=== PATIENT | female | born 1960 | race African-American/Black ===

== ENCOUNTER 2019-06-06 18:27 | Emergency (ER) | payer OTHER ==
--- OUTSIDE RECORDS SUMMARY | 2019-06-06 18:30 | XMS REPORT ---
:1960 [facility] Address [address] [place] [address] Care Team Providers Name Role Phone Unavailable Unavailable Unavailable Problems This patient has no known problems. Allergies, Adverse Reactions, Alerts This patient has no known allergies or adverse reactions. Medications This patient has no known medications.
[2019-06-06 20:26] LABS: Urine Blood NEGATIVE (NEG); Urine Glucose NEGATIVE (NEG); Urine Protein NEGATIVE (NEG); Urine Specific Gravity 1.025 (1.005-1.030)
--- NOTE | 2019-06-06 23:15 | ER ---
Nurse's Notes [facility] Name: Naty Garrido Age: 59 yrs Sex: Female : 1960 Arrival Date: 06/06/2019 Time: 18:30 Bed 23 Private MD: Diagnosis: Low back pain;Muscle spasm of back Presentation: 06/06 19:15 Presenting complaint: Patient states: pain started Friday,went to clinic and rv prescribed with Cyclobenzaprine and Methylprednisolone. pain is not getting better. sharp pain on the right lower back, radiates to the front. Transition of care: patient was not received from another setting of care. Onset of symptoms was June 01, 2019 at 08:00. Risk Assessment: Do you want to hurt yourself or someone else? Patient reports no desire to harm self or others. Initial Sepsis Screen: Does the patient meet any 2 criteria? No. Patient's initial sepsis screen is negative. Does the patient have a suspected source of infection? No. Patient's initial sepsis screen is negative. Care prior to arrival: None. 19:15 Method Of Arrival: Ambulatory rv 19:15 Acuity: BARON 4 rv Triage Assessment: 19:19 General: Appears in no apparent distress. Behavior is calm, cooperative. Pain: rv Complains of pain in lower back. Musculoskeletal: Swelling absent. Historical: - Allergies: 19:18 No Known Allergies; rv - PMHx: 19:18 Hypertension; Hypothyroidism; Lupus; rv - PSHx: 19:18 Hysterectomy; rv - Immunization history:: Adult Immunizations up to date. - Coronavirus screen:: The patient has NOT traveled to [place], [place], or [place] in the past 14 days. Proceed with normal triage process as indicated. The patient has NOT had contact with known/suspected case of Coronavirus? Proceed with normal triage procedures. - Social history:: Smoking status: Patient denies any tobacco usage or history of. - Ebola Screening: : No symptoms or risks identified at this time. Screenin:00 Abuse screen: Denies threats or abuse. Denies injuries from another. Nutritional aj1 screening: No deficits noted. Tuberculosis screening: No symptoms or risk factors identified. 23:52 Fall Risk None identified. No fall in past 12 months (0 pts). No secondary diagnosis (0 ch2 pts). No IV (0 pts). Ambulatory Aid- None/Bed Rest/Nurse Assist (0 pts). Gait- Normal/Bed Rest/Wheelchair (0 pts) Mental Status- Oriented to own ability (0 pts). Total Damon Fall Scale indicates No Risk (0-24 pts). Assessment: 20:00 General: Appears in no apparent distress. uncomfortable, Behavior is calm, cooperative, aj1 appropriate for age. Pain: Complains of pain in right low back Pain radiates to abdomen. Neuro: Level of Consciousness is awake, alert, obeys commands, Oriented to person, place, time, situation. Cardiovascular: Patient's skin is warm and dry. Respiratory: Airway is patent Respiratory effort is even, unlabored, Respiratory pattern is regular, symmetrical. GI: No signs and/or symptoms were reported involving the gastrointestinal system. : No signs and/or symptoms were reported regarding the genitourinary system. Reports burning with urination. EENT: No signs and/or symptoms were reported regarding the EENT system. Derm: No signs and/or symptoms reported regarding the dermatologic system. Skin is pink, warm \T\ dry. normal. Musculoskeletal: No signs and/or symptoms reported regarding the musculoskeletal system. Circulation, motion, and sensation intact. 21:00 Reassessment: Patient appears in no apparent distress at this time. No changes from aj1 previously documented assessment. Patient and/or family updated on plan of care and expected duration. Pain level reassessed. Patient is alert, oriented x 3, equal unlabored respirations, skin warm/dry/pink. 21:28 Reassessment: Patient transported to [place] via wheelchair. aj1 23:23 Reassessment: Patient appears in no apparent distress at this time. No changes from ch2 previously documented assessment. Patient and/or family updated on plan of care and expected duration. Pain level reassessed. Patient is alert, oriented x 3, equal unlabored respirations, skin warm/dry/pink. General: Appears in no apparent distress. comfortable, Behavior is calm, cooperative. Pain: Complains of pain in abdomen and back and right low back Pain radiates to abdomen and back and right low back Pain currently is 6 out of 10 on a pain scale. 23:50 Reassessment: Patient and/or family updated on plan of care and expected duration. Pain ch2 level reassessed. Patient is alert, oriented x 3, equal unlabored respirations, skin warm/dry/pink. General: Appears in no apparent distress. comfortable, Behavior is calm, cooperative. Pain: Pain currently is 3 out of 10 on a pain scale. Vital Signs: 19:14 BP 143 / 99; Pulse 74; Resp 17; Temp 98; Pulse Ox 100% ; Weight 158.76 kg; Height 5 ft. rv 9 in. (175.26 cm); Pain 9/10; 21:53 BP 107 / 92 (auto/reg); Pulse 82; Pulse Ox 100% on R/A; jp3 22:45 BP 131 / 87; Pulse 77; Resp 16; Temp 98.4(O); Pulse Ox 98% on R/A; Pain 6/10; ch2 23:15 BP 139 / 84; Pulse 79; Resp 18; Pulse Ox 98% on R/A; Pain 6/10; ch2 23:50 BP 120 / 61; Pulse 73; Resp 18; Temp 98; Pulse Ox 98% on R/A; Pain 4/10; ch2 19:14 Body Mass Index 51.69 (158.76 kg, 175.26 cm) rv 21:53 BP cuff on left Forearm jp3 ED Course: 18:30 Patient arrived in ED. as 19:06 Shawn[facility] Blake [facility]-C [facility] snw 19:06 Eric Bryant MD is Attending Physician. snw 19:17 Triage completed. rv 19:18 Arm band placed on. rv 20:00 Patient has correct armband on for positive identification. Bed in low position. Call aj1 light in reach. Side rails up X 1. 20:00 No provider procedures requiring assistance completed. aj1 20:49 Jo-Ann Polanco, RN is Primary Nurse. aj1 21:56 Warm blanket given. Pillow given. Verbal reassurance given. Pulse ox on. NIBP on. jp3 22:09 CT Stone Protocol In Process Unspecified. EDMS 23:51 Patient did not have IV access during this emergency room visit. ch2 Administered Medications: 23:24 Drug: TORadol 60 mg Route: IM; Site: right gluteus; ch2 Outcome: 23:14 Discharge ordered by . snw 23:51 Discharged to home ambulatory. ch2 23:51 Condition: good 23:51 Discharge instructions given to patient, Instructed on discharge instructions, follow up and referral plans. medication usage, Demonstrated understanding of instructions, follow-up care, medications, Prescriptions given X 2. 23:52 Patient left the ED. ch2 Signatures: Dispatcher [employer] EDJo-Ann Solitario RN RN aj1 Shawna Blake, SATELLITE DISH REPAIRER-C SATELLITE DISH REPAIRER-Csnw Fina Maldonado Candace, RN RN ch2 Camilo Rodriguez RN RN rv [address] jp3
--- NOTE | 2019-06-06 23:15 | EDPHYS ---
Physician Documentation [facility] Name: Naty Garirdo Age: 59 yrs Sex: Female : 1960 Arrival Date: 06/06/2019 Time: 18:30 Bed 23 Private MD: ED Physician Eric Bryant HPI: 06/06 22:01 This 59 yrs old Black Female presents to ER via Ambulatory with complaints of Back Pain.snw 22:01 The patient presents with pain that is acute, with no known mechanism of injury. The snw symptoms are located in the right lower quad through to right low back. Onset: The symptoms/episode began/occurred suddenly, and became worse. The pain does not radiate. Associated signs and symptoms: The patient has no apparent associated signs or symptoms. The problem was sustained from unknown cause. Severity of symptoms: At their worst the symptoms were moderate, severe. The patient has not experienced similar symptoms in the past, but family has similar symptoms. The patient has been recently seen by a physician: the patient's primary care provider, Dr. Alyson Andrews 3 day(s) ago, with similar presenting complaints, ordered CT (pt has not had completed), lab work within normal, no UTI, Rx steroids. Historical: - Allergies: 19:18 No Known Allergies; rv - PMHx: 19:18 Hypertension; Hypothyroidism; Lupus; rv - PSHx: 19:18 Hysterectomy; rv - Immunization history:: Adult Immunizations up to date. - Coronavirus screen:: The patient has NOT traveled to [place], [place], or [place] in the past 14 days. Proceed with normal triage process as indicated. The patient has NOT had contact with known/suspected case of Coronavirus? Proceed with normal triage procedures. - Social history:: Smoking status: Patient denies any tobacco usage or history of. - Ebola Screening: : No symptoms or risks identified at this time. ROS: 21:57 Constitutional: Negative for fever, chills, and weight loss, Eyes: Negative for injury, snw pain, redness, and discharge, ENT: Negative for injury, pain, and discharge, Neck: Negative for injury, pain, and swelling, Cardiovascular: Negative for chest pain, palpitations, and edema, Respiratory: Negative for shortness of breath, cough, wheezing, and pleuritic chest pain, : Negative for injury, bleeding, discharge, and swelling, MS/Extremity: Negative for injury and deformity, Skin: Negative for injury, rash, and discoloration, Neuro: Negative for headache, weakness, numbness, tingling, and seizure, Psych: Negative for depression, anxiety, suicide ideation, homicidal ideation, and hallucinations. 21:57 Abdomen/GI: Positive for abdominal pain, Negative for nausea, vomiting, and diarrhea, vomiting, diarrhea, abdominal cramps, abdominal distension, anorexia. 21:57 Back: Positive for pain through from right lower quad through to right low back, worse with movement. Exam: 21:57 Constitutional: This is a well developed, obese patient who is awake, alert, and in no snw acute distress. Head/Face: Normocephalic, atraumatic. Eyes: Pupils equal round and reactive to light, extra-ocular motions intact. Lids and lashes normal. Conjunctiva and sclera are non-icteric and not injected. Cornea within normal limits. Periorbital areas with no swelling, redness, or edema. ENT: Nares patent. No nasal discharge, no septal abnormalities noted. Tympanic membranes are normal and external auditory canals are clear. Oropharynx with no redness, swelling, or masses, exudates, or evidence of obstruction, uvula midline. Mucous membranes moist. Neck: Trachea midline, no thyromegaly or masses palpated, and no cervical lymphadenopathy. Supple, full range of motion without nuchal rigidity, or vertebral point tenderness. No Meningismus. Chest/axilla: Normal chest wall appearance and motion. Nontender with no deformity. No lesions are appreciated. Cardiovascular: Regular rate and rhythm with a normal S1 and S2. No gallops, murmurs, or rubs. Normal PMI, no JVD. No pulse deficits. Respiratory: Lungs have equal breath sounds bilaterally, clear to auscultation and percussion. No rales, rhonchi or wheezes noted. No increased work of breathing, no retractions or nasal flaring. Back: No spinal tenderness. No costovertebral tenderness. Full range of motion. Skin: Warm, dry with normal turgor. Normal color with no rashes, no lesions, and no evidence of cellulitis. MS/ Extremity: Pulses equal, no cyanosis. Neurovascular intact. Full, normal range of motion. Neuro: Awake and alert, GCS 15, oriented to person, place, time, and situation. Cranial nerves II-XII grossly intact. Motor strength 5/5 in all extremities. Sensory grossly intact. Cerebellar exam normal. Normal gait. Psych: Awake, alert, with orientation to person, place and time. Behavior, mood, and affect are within normal limits. 21:57 Abdomen/GI: Inspection: obese Bowel sounds: normal, Palpation: abdomen is soft and non-tender, in all quadrants. Vital Signs: 19:14 BP 143 / 99; Pulse 74; Resp 17; Temp 98; Pulse Ox 100% ; Weight 158.76 kg; Height 5 ft. rv 9 in. (175.26 cm); Pain 9/10; 21:53 BP 107 / 92 (auto/reg); Pulse 82; Pulse Ox 100% on R/A; jp3 22:45 BP 131 / 87; Pulse 77; Resp 16; Temp 98.4(O); Pulse Ox 98% on R/A; Pain 6/10; ch2 23:15 BP 139 / 84; Pulse 79; Resp 18; Pulse Ox 98% on R/A; Pain 6/10; ch2 23:50 BP 120 / 61; Pulse 73; Resp 18; Temp 98; Pulse Ox 98% on R/A; Pain 4/10; ch2 19:14 Body Mass Index 51.69 (158.76 kg, 175.26 cm) rv 21:53 BP cuff on left Forearm jp3 MDM: 19:57 Patient medically screened. snw 23:09 Data reviewed: vital signs, nurses notes. Data interpreted: Pulse oximetry: on room air snw is 100 %. Interpretation: normal. Counseling: I had a detailed discussion with the patient and/or guardian regarding: the historical points, exam findings, and any diagnostic results supporting the discharge/admit diagnosis, the presence of at least one elevated blood pressure reading (>120/80) during this emergency department visit, lab results, radiology results, the need for outpatient follow up, to return to the emergency department if symptoms worsen or persist or if there are any questions or concerns that arise at home. Special discussion: Based on the patient's Hx, exam, and Dx evaluation, there is no indication for emergent surgery or inpatient Tx. It is understood by the patient/guardian that if the Sx's persist or worsen they need to return immediately for re-evaluation. Based on the history and exam findings, there is no indication for further emergent testing or inpatient evaluation. I discussed with the patient/guardian the need to see the primary care provider for further evaluation of the symptoms. 06/06 20:06 Order name: Urine Dipstick--Ancillary (enter results); Complete Time: :27 em1 06/06 20:55 Order name: CT Stone Protocol snw Administered Medications: 23:24 Drug: TORadol 60 mg Route: IM; Site: right gluteus; ch2 Disposition: 06/07 02:45 Co-signature as Attending Physician, Eric Bryant MD. rn Disposition: 06/06/19 23:14 Discharged to Home. Impression: Low back pain, Muscle spasm of back. - Condition is Stable. - Discharge Instructions: Back Pain, Adult, Musculoskeletal Pain, Cryotherapy, Heat Therapy. - Prescriptions for Diclofenac Sodium 75 mg Oral Tablet Sustained Release - take 1 tablet by ORAL route 2 times per day; 30 tablet. orphenadrine citrate 100 mg Oral Tablet Sustained Release - take 1 tablet by ORAL route 2 times per day As needed; 20 tablet. - Work release form, Medication Reconciliation Form, Thank You Letter, Antibiotic Education, Prescription Opioid Use form. - Follow up: Emergency Department; When: As needed; Reason: Worsening of condition. Follow up: Private Physician; When: 2 - 3 days; Reason: Recheck today's complaints, Continuance of care, Re-evaluation by your physician. Signatures: Dispatcher [employer] EDMS Shawna Blake, DAY CAMP UNIT LEADER-C DAY CAMP UNIT LEADER-Csnw Eric Bryant MD MD rn Hanna, Candace, RN RN ch2 Camilo Rodriguez RN RN rv Corrections: (The following items were deleted from the chart) 06/06 23:52 23:14 06/06/2019 23:14 Discharged to Home. Impression: Low back pain; Muscle spasm of ch2 back. Condition is Stable. Forms are Medication Reconciliation Form, Thank You Letter, Antibiotic Education, Prescription Opioid Use. Follow up: Emergency Department; When: As needed; Reason: Worsening of condition. Follow up: Private Physician; When: 2 - 3 days; Reason: Recheck today's complaints, Continuance of care, Re-evaluation by your physician. snw
[2019-06-06] MEDS ORDERED: KETOROLAC 30 MG/ML INJ ONE (23:21)
[2019-06-07 00:31] VITALS: O2SAT 98
[2019-06-07 00:34] VITALS: BP 120/61; TEMP 98
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
== END 2019-06-06 23:52 | disposition home or self-care (01) ==
LOC: ER 18:27
DX: M62.830 Muscle spasm of back (principal)
CPT/HCPCS: 74176; 76377; 81003; 96372; 99284

== ENCOUNTER 2019-11-02 13:56 | Emergency (ER) | payer OTHER ==
[2019-11-02] MEDS ORDERED: ONDANSETRON 4 MG (ODT) TAB ONE (15:23)
[2019-11-02] MEDS ORDERED: HYDROCODONE/APAP 10/325 TAB ONE (15:23)
--- OUTSIDE RECORDS SUMMARY | 2019-11-02 16:17 | XMS REPORT | Continuity of Care Document ---
:1960 Author Organization [facility] t Address [address] [place] [address] Care Team Providers Name Role Phone Kelly Escobar Main Attending Clinician Unavailable Terri GUTIERREZ, A Attending Clinician Problems This patient has no known problems. Allergies, Adverse Reactions, Alerts This patient has no known allergies or adverse reactions. Medications This patient has no known medications. Procedures This patient has no known procedures. Encounters Start End Encounter Admission Attending Care Care Encounter Source Date/Time Date/Time Type Type Clinicians Facility Department ID 2019-10-06 2019-10-06 Heat Treat Inspector Kimberley Escobar [facility] [id number] 12:32:20 12:47:20 Visit Lab Main Ned [id number] [place] [id number] Professio [phone] [address] 2019-06-01 2019-06-01 Office LACEY Murray [id number] 07:01:19 07:56:19 Visit Laina A Ned [id number] [place] [id number] Professio [phone] [facility] [address] [facility] Results This patient has no known results.
--- OUTSIDE RECORDS SUMMARY | 2019-11-02 16:17 | XMS REPORT | Summary of Care ---
:1960 Author Organization [facility] - [facility] Address [address] [place] [id number] Care Team Providers Name Role Phone Gilberto Murray MD Primary Care Provider Reason for Visit Reason Comments Refill Request Encounter Details Date Type Department Care Team Description 08/16/2019 Telephone [facility] Pediatric and Stephy Murray, Refill Request Adult Primary Care- MD Marino [address] [place] [address], [address] [place] [address] [place] [address] [phone] Allergies Active Allergy Reactions Severity Noted Date Comments Codeine Other - See comments 05/29/2012 Drugged up feeling documented as of this encounter (statuses as of 08/16/2019) Medications Medication Sig Dispensed Refills Start End Date Status Date albuterol (PROVENTIL) 2 Active 2.5 mg /3 mL (0.083 %) 5 nebulizer solution albuterol (PROVENTIL Inhale 2 Puffs 8.5 g 3 Active HFA) 90 mcg/actuation every 4 (four) 7 inhaler hours as needed for Wheezing or Shortness of Breath. losartan 100 mg Take 1 tablet by 90 tablet 0 Active tabletIndications: mouth daily. 8 Essential hypertension, benign albuterol 2.5 mg /3 mL Inhale 3 mL every 1 Box 3 Active (0.083 %) nebulizer 4 (four) hours. 8 solution May also nebulize one extra every 6 hours. montelukast 10 mg tablet Take 1 tablet by 90 tablet 3 04/21/20 1 Active mouth daily. Take 8 one tablet by mouth q. at bedtime VALACYCLOVIR 1 gram TAKE 1 TABLET BY 60 tablet 0 Active tabletIndications: Fever MOUTH TWICE DAILY 9 blister FOR 5 DAYS, THEN TAKE 1 TABLET BY MOUTH EVERY DAY cyanocobalamin 1,000 1 mL by 12 mL 3 Active mcg/mL Intramuscular 9 injectionIndications: route weekly. B12 deficiency ergocalciferol, vitamin Take 1 capsule by 12 capsule 3 01 Active d2, (VITAMIN D2) 50,000 mouth weekly. 9 unit capsuleIndications: Thin nails, Osteopenia, unspecified location hydroCHLOROthiazide 12.5 Take 2 tablets by 180 tablet 3 Active mg tabletIndications: mouth every 9 Essential hypertension, morning. benign hydroxychloroquine 200 Take 1 tablet by 180 tablet 1 Active mg tabletIndications: mouth 2 (two) 9 Systemic lupus times daily. erythematosus, unspecified SLE type, unspecified organ involvement status TRIAMCINOLONE ACETONIDE APPLY TO AFFECTED 80 g 1 02/12/20 1 Active 0.1 % creamIndications: AREA TOPICALLY 2 9 Rash, Eczema, (TWO) TIMES unspecified type DAILY. levothyroxine 137 mcg TAKE 1 TABLET BY 90 tablet 1 Active tabletIndications: MOUTH EVERY 9 Hypothyroidism, MORNING unspecified type fexofenadine 180 mg Take 180 mg by 0 Active tablet mouth daily. AZELASTINE 0.05 % PLACE 1 DROP IN 6 mL 11 Active ophthalmic BOTH EYES 2 (TWO) 9 solutionIndications: TIMES DAILY. Other chronic allergic conjunctivitis of both eyes pregabalin (LYRICA) 50 TAKE 1 CAPSULE BY 180 capsule 1 02 Active mg capsuleIndications: MOUTH TWICE A DAY 0 Neuropathy alendronate 70 mg One tablet once a 12 tablet 3 Active tabletIndications: week 0 Osteoporosis mometasone (NASONEX) 50 2 sprays in each 1 Bottle 11 Active mcg/actuation nasal nostril once a 0 sprayIndications: day Seasonal allergies B Complex Vitamins Take 1 tablet by 90 tablet 3 Active (B-COMPLEX) mouth daily. 0 tabletIndications: Nail problem Hospital, Clinic, or Other Ordered Dose Route Frequency Start Date End Date Status Facility Administered Medication cyanocobalamin (VITAMIN B12) 1000 mcg IM QWEEKLY 11/20/2018 Active injection 1,000 mcg documented as of this encounter (statuses as of 08/16/2019) Active Problems Problem Noted Date Other chronic allergic conjunctivitis of both eyes Vitamin D insufficiency 01/17/2017 Leukopenia, unspecified type 10/25/2016 Long-term use of Plaquenil 10/25/2016 Shingles outbreak 08/18/2015 SLE (systemic lupus erythematosus) 08/18/2015 Vitamin D deficiency 08/18/2015 Hyperproteinemia 08/18/2015 Anti-AUTOMOBILE RADIO REPAIRER antibodies present 07/14/2015 ocean transportation intermediary use of bisphosphonates 07/14/2015 Normocytic anemia 06/30/2014 Peripheral neuropathy 03/12/2013 MCTD (mixed connective tissue disease) 01/07/2013 Osteopenia 05/29/2012 Encounter for long-term (current) use of steroids 05/2011 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 GERD (gastroesophageal reflux disease) 11/16/2010 Encounter for long-term (current) use of other medicat ions 11/16/2010 Systemic lupus erythematosus 08/16/2010 Inflammatory polyarthropathy 10/27/2007 Overview: ICD10 Diagnosis Term Wire Basket Maker Utility Essential hypertension, benign documented as of this encounter (statuses as of 08/16/2019) Resolved Problems Problem Noted Date Resolved Date Muscle weakness 06/30/2014 11/18/2015 Numbness of hand 01/11/2013 11/18/2015 History of pneumonia 08/27/2012 11/18/2015 Acute upper respiratory infection 08/27/20122015 Overview: ICD10 Diagnosis Term Wire Basket Maker Utility Chronic anemia 06/20/2011 11/18/2015 Other voice and resonance disorders 09/14/20090 01/2016 documented as of this encounter (statuses as of 08/16/2019) Immunizations Name Administration Dates Next Due DTAP 06/23/2009 Influenza Virus Vaccine 02/27/2012, 02/28/2009 Influenza Virus Vaccine Quad .5 mL IM 6+ MO 02/16/2019, 100 07/2017 Influenza Virus Vaccine Quad IM 3+ YRS 02/19/2017 Meningococcal B, OMV 06/01/2019 Pneumococcal 13 Conjugate, PCV13 (Prevnar 13) 02/22/2019 Pneumococcal Polysaccharide, PPSV23 (PNEUMOVAX) 02/28/2009 Tdap 02/22/2019 documented as of this encounter Social History Tobacco Use Types Packs/Day Years Used Date Never Smoker Smokeless Tobacco: Never Used Alcohol Use Drinks/Week oz/Week Comments No Sex Assigned at Date Recorded Not on file Job Start Date Occupation Industry Not on file Not on file Not on file Travel History Travel Start Travel End No recent travel history available. documented as of this encounter Last Filed Vital Signs Not on filedocumented in this encounter Plan of Treatment Date Type Specialty Care Team Description 08/16/2019 Telemedicine Visit Internal Medicine Jarett Murray MD [address] [address] 12/03/2019 Office Visit Internal Medicine Laina Murray MD [address] [address] Health Maintenance Due Date Last Done Comments MENINGOCOCCAL B VACCINES (2 06/29/2019 06/01/2019 of 2 - Risk Bexsero 2-dose series) Breast Cancer Screening 08/01/2019 07/31/2018, 10/25/2016, (MAMMOGRAM) 07/26/2015, Additional history exists Zoster Recombinant Vaccine 06/01/2020 Postp oned from ([facility]X) (1 of 2) 2011 ( Insurance / Financial) PNEUMOCOCCAL 0-64 YEARS 07/21/2023 02/22/2019, 02/28/2009 P ostponed from COMBINED SERIES (3 of 3 - 2018 PPSV23) (Alternative Guidelines) COLONOSCOPY 01/20/2024 01/19/2014 (Previously completed) DTaP,Tdap,and Td Vaccines 02/22/2029 02/22/2019, 06/23/2009 (3 - Td) PAP SMEAR Discontinued 08/16/2010, 11/25/2007 HEPATITIS C (HCV) SCREEN Completed 06/14/2015, 10/27/2007 INFLUENZA VACCINE Completed 02/16/2019, 02/11/2018, 02/19/2017, Additional history exists documented as of this encounter Results Not on filedocumented in this encounter Insurance Payer Benefit Plan / Subscriber ID Effective Dates Phone Addre ss Type Group [facility] xxxxxxxxx 2011-Present Medicaid COMM PLAN - PLUS MANAGED MEDICAID documented as of this encounter Advance Directives Type Date Recorded Patient Manager Of Corporate Explanati on Advance Directives and Living Will Power of Can Feeder
--- OUTSIDE RECORDS SUMMARY | 2019-11-02 16:18 | XMS REPORT | Summary of Care ---
:1960 Author Organization [facility] - [facility] Address [address] [place] [address] Care Team Providers Name Role Phone Gilberto Murray MD Primary Care Provider Reason for Visit Reason Comments Refill Request Encounter Details Date Type Department Care Team Description 08/16/2019 Telephone [facility] Internal Enriqueta Hughes , Refill Request Medicine Rheumatology-[facility] on [address] [facility] Primary Care [facility] [address] , [place] [address] [address] [place] [address] [phone] Allergies Active Allergy Reactions Severity Noted Date Comments Codeine Other - See comments 05/29/2012 Drugged up feeling documented as of this encounter (statuses as of 08/17/2019) Medications Medication Sig Dispensed Refills Start End [...] 50 2 sprays in each 1 Bottle Active mcg/actuation nasal nostril once a 0 [...] as of this encounter (statuses as of 08/17/2019) Active Problems Problem Noted Date Other chronic allergic conjunctivitis of both eyes Vitamin D insufficiency 01/17/2017 Leukopenia, unspecified type 10/25/2016 Long-term use of Plaquenil 10/25/2016 Shingles outbreak 08/18/2015 SLE (systemic lupus erythematosus) 08/18/2015 Vitamin D deficiency 08/18/2015 Hyperproteinemia 08/18/2015 Anti-USED CAR SALES MANAGER antibodies present 07/14/2015 long term care social worker use of bisphosphonates 07/14/2015 Normocytic anemia 06/30/2014 Peripheral neuropathy 03/12/2013 MCTD (mixed connective tissue disease) 01/07/2013 Osteopenia 05/29/2012 Encounter for long-term (current) use of steroids 05/2011 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 GERD (gastroesophageal reflux disease) 11/16/2010 Encounter for long-term (current) use of other medicat ions 11/16/2010 Systemic lupus erythematosus 08/16/2010 Inflammatory polyarthropathy 10/27/2007 Overview: ICD10 Diagnosis Term Com Writer Utility Essential hypertension, benign documented as of this encounter (statuses as of 08/17/2019) Resolved Problems Problem Noted Date Resolved Date Muscle weakness 06/30/2014 11/18/2015 Numbness of hand 01/11/2013 11/18/2015 History of pneumonia 08/27/2012 11/18/2015 Acute upper respiratory infection 08/27/20122015 Overview: ICD10 Diagnosis Term Com Writer Utility Chronic anemia 06/20/2011 11/18/2015 Other voice and resonance disorders 09/14/200901/2016 documented as of this encounter (statuses as of 08/17/2019) Immunizations Name Administration Dates Next Due DTAP [...] Treatment Date Type Specialty Care Team Description 12/03/2019 Office Visit Internal Medicine Paula Murray MD [address] [place] [address] [phone] Health Maintenance Due Date Last Done Comments [...] Effective Dates Phone Addre ss Type Group [facility] xxxxxxxxx 2011-Present Medicaid COMM PLAN - PLUS MANAGED MEDICAID documented as of this encounter Advance Directives Type Date Recorded Patient Manager Change Explanati on Advance Directives and Living Will Power of Metal Base Blocker
--- OUTSIDE RECORDS SUMMARY | 2019-11-02 16:19 | XMS REPORT | Summary of Care ---
:1960 Author Organization [facility] - [facility] Address [address] [place] [address] Care Team Providers Name Role Phone Gilberto Murray MD Primary Care Provider Reason for Visit Reason Comments Refill Request Encounter Details Date Type Department Care Team Description 08/16/2019 Refill [facility] Internal Joss Hughes MD Refill Request Medicine [address] [facility] on [address] Primary Care [place], [place] [address] [place], [place] [address]yazmin Martinez, [address] [place] [address] Allergies Active Allergy Reactions Severity Noted Date Comments Codeine Other - See comments 05/29/2012 Drugged up feeling documented as of this encounter (statuses as of 08/20/2019) Medications Medication Sig Dispensed Refills Start End Status Date Date albuterol (PROVENTIL) 2 Active 2.5 mg /3 mL (0.083 %) 015 nebulizer solution albuterol (PROVENTIL Inhale 2 Puffs 8.5 g 3 Active HFA) 90 mcg/actuation every 4 (four) 017 inhaler hours as needed for Wheezing or Shortness of Breath. losartan 100 mg Take 1 tablet by 90 tablet 0 Active tabletIndications: mouth daily. 018 Essential hypertension, benign albuterol 2.5 mg /3 mL Inhale 3 mL 1 Box 3 Active (0.083 %) nebulizer every 4 (four) 018 solution hours. May also nebulize one extra every 6 hours. montelukast 10 mg Take 1 tablet by 90 tablet 3 Active tablet mouth daily. 018 Take one tablet by mouth q. at bedtime VALACYCLOVIR 1 gram TAKE 1 TABLET BY 60 tablet 0 Active tabletIndications: MOUTH TWICE 019 Fever blister DAILY FOR 5 DAYS, THEN TAKE 1 TABLET BY MOUTH EVERY DAY cyanocobalamin 1,000 1 mL by 12 mL 3 Active mcg/mL Intramuscular 019 injectionIndications: route weekly. B12 deficiency ergocalciferol, Take 1 capsule 12 capsule 3 Active vitamin d2, (VITAMIN by mouth weekly. 019 D2) 50,000 unit capsuleIndications: Thin nails, Osteopenia, unspecified location hydroCHLOROthiazide Take 2 tablets 180 tablet 3 Active 12.5 mg by mouth every 019 tabletIndications: morning. Essential hypertension, benign TRIAMCINOLONE APPLY TO 80 g 1 Active ACETONIDE 0.1 % AFFECTED AREA 019 creamIndications: TOPICALLY 2 Rash, Eczema, (TWO) TIMES unspecified type DAILY. levothyroxine 137 mcg TAKE 1 TABLET BY 90 tablet 1 Active tabletIndications: MOUTH EVERY 019 Hypothyroidism, MORNING unspecified type fexofenadine 180 mg Take 180 mg by 0 Active tablet mouth daily. AZELASTINE 0.05 % PLACE 1 DROP IN 6 mL 11 Active ophthalmic BOTH EYES 2 019 solutionIndications: (TWO) TIMES Other chronic allergic DAILY. conjunctivitis of both eyes pregabalin (LYRICA) 50 TAKE 1 CAPSULE 180 capsule 1 Active mg capsuleIndications: BY MOUTH TWICE A 020 Neuropathy DAY alendronate 70 mg One tablet once 12 tablet 3 Active tabletIndications: a week 020 Osteoporosis mometasone (NASONEX) 2 sprays in each 1 Bottle 11 Active 50 mcg/actuation nasal nostril once a 020 sprayIndications: day Seasonal allergies B Complex Vitamins Take 1 tablet by 90 tablet 3 Active (B-COMPLEX) mouth daily. 020 tabletIndications: Nail problem hydroxychloroquine 200 Take 1 tablet by 180 tablet 0 Active mg tabletIndications: mouth 2 (two) 020 Systemic lupus times daily. Dx: erythematosus, M32.9 unspecified SLE type, unspecified organ involvement status hydroxychloroquine 200 Take 1 tablet by 180 tablet 1 08/16/ Discontinued mg tabletIndications: mouth 2 (two) 019 2020 (Reorder) Systemic lupus times daily. erythematosus, unspecified SLE type, unspecified organ involvement status Hospital, Clinic, or Other Ordered Dose Route Frequency Start Date End Date Status Facility Administered Medication cyanocobalamin (VITAMIN B12) 1000 mcg IM QWEEKLY 11/20/2018 Active injection 1,000 mcg documented as of this encounter (statuses as of 08/20/2019) Active Problems Problem Noted Date Other chronic allergic conjunctivitis of both eyes Vitamin D insufficiency 01/17/2017 Leukopenia, unspecified type 10/25/2016 Long-term use of Plaquenil 10/25/2016 Shingles outbreak 08/18/2015 SLE (systemic lupus erythematosus) 08/18/2015 Vitamin D deficiency 08/18/2015 Hyperproteinemia 08/18/2015 Anti-LIBRARY SALES CONSULTANT antibodies present 07/14/2015 terminal carman use of bisphosphonates 07/14/2015 Normocytic anemia 06/30/2014 Peripheral neuropathy 03/12/2013 MCTD (mixed connective tissue disease) 01/07/2013 Osteopenia 05/29/2012 Encounter for long-term (current) use of steroids 05/2011 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 GERD (gastroesophageal reflux disease) 11/16/2010 Encounter for long-term (current) use of other medicat ions 11/16/2010 Systemic lupus erythematosus 08/16/2010 Inflammatory polyarthropathy 10/27/2007 Overview: ICD10 Diagnosis Term Web Press Operator Assistant Utility Essential hypertension, benign documented as of this encounter (statuses as of 08/20/2019) Resolved Problems Problem Noted Date Resolved Date Muscle weakness 06/30/2014 11/18/2015 Numbness of hand 01/11/2013 11/18/2015 History of pneumonia 08/27/2012 11/18/2015 Acute upper respiratory infection 08/27/20122015 Overview: ICD10 Diagnosis Term Web Press Operator Assistant Utility Chronic anemia 06/20/2011 11/18/2015 Other voice and resonance disorders 09/14/2009 07/0 01/2016 documented as of this encounter (statuses as of 08/20/2019) Immunizations Name Administration Dates Next Due DTAP 06/23/2009 Influenza Virus Vaccine 02/27/2012, 02/28/2009 Influenza Virus Vaccine Quad .5 mL IM 6+ MO 02/16/2019, 10/07/2017 Influenza Virus Vaccine Quad IM 3+ YRS [...] Office Visit Internal Medicine Paula Murray MD [address] [place] [address] [phone] Health Maintenance Due Date Last Done Comments [...] Results Not on filedocumented in this encounter Visit Diagnoses Diagnosis Systemic lupus erythematosus, unspecifie d SLE type, unspecified organ involvement status documented in this encounter Insurance Payer Benefit Plan / Subscriber ID Effective Dates Phone Addre ss Type Group [facility] xxxxxxxxx 2011-Present Medicaid COMM PLAN - PLUS MANAGED MEDICAID documented as of this encounter Advance Directives Type Date Recorded Patient Income Tax Consultant Explanati on Advance Directives and Living Will Power of Tourist Information Officer
--- OUTSIDE RECORDS SUMMARY | 2019-11-02 16:19 | XMS REPORT | Summary of Care ---
:1960 Author Organization [facility] - [facility] Address [address] [place] [address] Care Team Providers Name Role Phone Gilberto Murray MD Primary Care Provider Reason for Visit Reason Comments Refill Request Encounter Details Date Type Department Care Team Description 08/16/2019 Telephone [facility] Internal Enriqueta Hughes , Refill Request Medicine Rheumatology-[facility] on [address] [facility] Primary Care [facility] [address] , [place] [address] [address] [place] [address] [phone] Allergies Active Allergy Reactions Severity Noted Date [...] 08/18/2015 Vitamin D deficiency 08/18/2015 Hyperproteinemia 08/18/2015 Anti-PICKUP DRIVER antibodies present 07/14/2015 extermination supervisor use of bisphosphonates 07/14/2015 Normocytic anemia 06/30/2014 Peripheral neuropathy 03/12/2013 MCTD (mixed connective tissue disease) 01/07/2013 Osteopenia 05/29/2012 Encounter for long-term (current) use of steroids 05/2011 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 GERD (gastroesophageal reflux disease) 11/16/2010 Encounter for long-term (current) use of other medicat ions 11/16/2010 Systemic lupus erythematosus 08/16/2010 Inflammatory polyarthropathy 10/27/2007 Overview: ICD10 Diagnosis Term Capacity Analyst Utility Essential hypertension, benign documented as of this encounter (statuses as of 08/17/2019) Resolved Problems Problem Noted Date Resolved Date Muscle weakness 06/30/2014 11/18/2015 Numbness of hand 01/11/2013 11/18/2015 History of pneumonia 08/27/2012 11/18/2015 Acute upper respiratory infection 08/27/20122015 Overview: ICD10 Diagnosis Term Capacity Analyst Utility Chronic anemia 06/20/2011 11/18/2015 Other voice and resonance disorders 09/14/2009 07/0 01/2016 documented as of this encounter (statuses as of 08/17/2019) Immunizations Name Administration Dates Next Due DTAP 06/23/2009 Influenza Virus Vaccine 02/27/2012, 02/28/2009 Influenza Virus Vaccine Quad .5 mL IM 6+ MO 02/16/2019, 1007/2017 Influenza Virus Vaccine Quad IM 3+ YRS [...] Office Visit Internal Medicine Paula Murray MD [address] [place] [address] [phone] Health Maintenance Due Date Last Done Comments [...] Effective Dates Phone Addre ss Type Group [facility] xxxxxxxxx 2011-Present Medicaid COMM PLAN - PLUS MANAGED MEDICAID documented as of this encounter Advance Directives Type Date Recorded Patient Field Training Agent Explanati on Advance Directives and Living Will Power of Medical Office Clerk
--- OUTSIDE RECORDS SUMMARY | 2019-11-02 16:19 | XMS REPORT | Summary of Care ---
:1960 Author Organization [facility] - [facility] Address [address] [place] [address] Care Team Providers Name Role Phone Gilberto Murray MD Primary Care Provider Reason for Visit Reason Comments Refill Request Encounter Details Date Type Department Care Team Description 08/16/2019 Refill [facility] Internal Joss Hughes MD Refill Request Medicine [address] [facility] on [address] Primary Care [place], [place] [address] [place], [place] [address]yazmin Martinez, [address] [place] [address] Allergies Active Allergy Reactions [...] 08/18/2015 Vitamin D deficiency 08/18/2015 Hyperproteinemia 08/18/2015 Anti-SHAPER MACHINE HAND antibodies present 07/14/2015 termite treater use of bisphosphonates 07/14/2015 Normocytic anemia 06/30/2014 Peripheral neuropathy 03/12/2013 MCTD (mixed connective tissue disease) 01/07/2013 Osteopenia 05/29/2012 Encounter for long-term (current) use of steroids 05/2011 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 GERD (gastroesophageal reflux disease) 11/16/2010 Encounter for long-term (current) use of other medicat ions 11/16/2010 Systemic lupus erythematosus 08/16/2010 Inflammatory polyarthropathy 10/27/2007 Overview: ICD10 Diagnosis Term Cutter Operator Utility Essential hypertension, benign documented as of this encounter (statuses as of 08/20/2019) Resolved Problems Problem Noted Date Resolved Date Muscle weakness 06/30/2014 11/18/2015 Numbness of hand 01/11/2013 11/18/2015 History of pneumonia 08/27/2012 11/18/2015 Acute upper respiratory infection 08/27/20122015 Overview: ICD10 Diagnosis Term Cutter Operator Utility Chronic anemia 06/20/2011 11/18/2015 Other voice [...] Office Visit Internal Medicine Paula Murray MD [address] [place] [address] [phone] Health Maintenance Due Date Last Done Comments [...] Dates Phone Addre ss Type Group [facility] xxxxxxxxx 2011-Present Medicaid COMM PLAN - PLUS MANAGED MEDICAID documented as of this encounter Advance Directives Type Date Recorded Patient Internal Sales Explanati on Advance Directives and Living Will Power of Computer Game Tester
--- OUTSIDE RECORDS SUMMARY | 2019-11-02 16:20 | XMS REPORT | Summary of Care ---
:1960 Author Organization [facility] - [facility] Address [address] [place] [address] Care Team Providers Name Role Phone Gilberto Murray MD Primary Care Provider Reason for Visit Reason Comments Pain Encounter Details Date Type Department Care Team Description 08/16/[address] [facility] and Laina Macisa MD (Primary Dx) Adult Primary [address] [facility]- [address], [address] [place] [address] [phone] Allergies Active Allergy Reactions Severity Noted Date Comments Codeine Other - See comments 05/29/2012 Drugged up feeling documented as of this encounter (statuses as of 09/08/2019) Medications Medication Sig Dispensed Refills Start End [...] % PLACE 1 DROP IN 6 mL Active ophthalmic BOTH EYES 2 019 solutionIndications: [...] (B-COMPLEX) mouth daily. 020 tabletIndications: Nail problem ciprofloxacin HCl Take 1 tablet by 14 tablet 1 Active (CIPRO) 500 mg mouth every 12 020 tabletIndications: (twelve) hours. Diverticulitis hyoscyamine (LEVSIN) Take 1 tablet by 20 tablet 1 Active 0.125 mg mouth 2 (two) 020 tabletIndications: times daily as Diverticulitis needed for Pain (scale 1-3). hydroxychloroquine 200 Take 1 tablet by 180 tablet 1 08/16/ mg tabletIndications: mouth 2 (two) 019 2019 (Reorder) Systemic lupus times daily. erythematosus, unspecified SLE type, unspecified organ involvement status Hospital, Clinic, or Other Ordered Dose Route Frequency Start Date End Date Status Facility Administered Medication cyanocobalamin (VITAMIN B12) 1000 mcg IM QWEEKLY 11/20/2018 Active injection 1,000 mcg documented as of this encounter (statuses as of 09/08/2019) Active Problems Problem Noted Date Other chronic allergic conjunctivitis of both eyes Vitamin D insufficiency 01/17/2017 Leukopenia, unspecified type 10/25/2016 Long-term use of Plaquenil 10/25/2016 Shingles outbreak 08/18/2015 SLE (systemic lupus erythematosus) 08/18/2015 Vitamin D deficiency 08/18/2015 Hyperproteinemia 08/18/2015 Anti-OWNER/PHOTOGRAPHER antibodies present 07/14/2015 alf use of bisphosphonates 07/14/2015 Normocytic anemia 06/30/2014 Peripheral neuropathy 03/12/2013 MCTD (mixed connective tissue disease) 01/07/2013 Osteopenia 05/29/2012 Encounter for long-term (current) use of steroids 05/2011 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 GERD (gastroesophageal reflux disease) 11/16/2010 Encounter for long-term (current) use of other medicat ions 11/16/2010 Systemic lupus erythematosus 08/16/2010 Inflammatory polyarthropathy 10/27/2007 Overview: ICD10 Diagnosis Term Bumper Machine Operator Utility Essential hypertension, benign documented as of this encounter (statuses as of 09/08/2019) Resolved Problems Problem Noted Date Resolved Date Muscle weakness 06/30/2014 11/18/2015 Numbness of hand 01/11/2013 11/18/2015 History of pneumonia 08/27/2012 11/18/2015 Acute upper respiratory infection 08/27/20122015 Overview: ICD10 Diagnosis Term Bumper Machine Operator Utility Chronic anemia 06/20/2011 11/18/2015 Other voice and resonance disorders 09/14/20090 01/2016 documented as of this encounter (statuses as of 09/08/2019) Immunizations Name Administration Dates Next Due DTAP [...] Signs Not on filedocumented in this encounter Progress Notes Laina Murray MD - 08/16/2019 2:40 PM CDTDOS: 08/16/2019 CC: Follow up of chronic conditions Verbal consent obtained from Patient: Naty Garrido due to the COVID-19 pandemic for telehealth services provided below. Communication with patient was conducted via Telephone due to patient unable to obtain video call option. Patient only has a flip phone and no computers in the house. 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 who is being seen today forfollow up of chronic conditions. She reports she has had three days of diverticulitis symptoms. No fevers or chills, only pain in herleft lower thigh. No pus in stool no fatigue, no shortness of breath or chest pain. She reports every time she has this particular pain is a diverticulitis and antibiotics fixed the problem. Medications reviewed in EPIC, past medical history and allergies reviewed. Review of Systems Constitutional: Negative for chills and fever. Respiratory: Negative for shortness of breath. Cardiovascular: Negative for chest pain. PE: Physical Exam Constitutional: Alert and oriented Pulmonary/Chest: Breath sounds normal. No respiratory distress. She has no wheezes. Breathing comfortably Neurological: Answers questions appropriately Psychiatric: She has a normal mood and affect. Thought content normal. A total of 4 minutes was spent on the Telephone due to patient unable to obtain video call option with the patient. 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 who is being seen today for follow up of chronic conditions. Diverticulitis Comment: Sounds like previous episodes of diverticulitis. Sent and antibiotics. If it is not helpingshe reports she will call. Plan: ciprofloxacin HCl (CIPRO) 500 mg tablet, hyoscyamine (LEVSIN) 0.125 mg tablet Plan of care, desired health behaviors, goals,& medication discussed with patient and educational resources and self management tools provided as appropriate. Patient/family/guardian voices understanding. Patient verbalized understanding & agrees to plan of care. Barriers to care: none Ability to manage care: good Return for [place] [id number] 09/08/2019 5:02 PM Manager Retention of Internal Medicine [facility] documented in this encounter Plan of Treatment Date Type Specialty Care Team Description 12/03/2019 Office Visit Internal Medicine Paula Murray MD [address] [address] [phone] Health Maintenance Due Date Last Done Comments [...] filedocumented in this encounter Visit Diagnoses Diagnosis Diverticulitis - Primary Diverticulitis of colon (without mention of hemorrhage) documented in this encounter Insurance Payer Benefit Plan / Subscriber ID Effective Dates Phone Addre ss Type Group [facility] xxxxxxxxx 2011-Present Medicaid COMM PLAN - PLUS MANAGED MEDICAID documented as of this encounter Advance Directives Type Date Recorded 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
--- OUTSIDE RECORDS SUMMARY | 2019-11-02 16:21 | XMS REPORT | Summary of Care ---
:1960 Author Organization [facility] - [facility] Address [address] [place] [address] Care Team Providers Name Role Phone Gilberto Murray MD Primary Care Provider Reason for Visit Reason Comments Refill Request Encounter Details Date Type Department Care Team Description 09/08/2019 Refill [facility] Pediatric and Stephy Murray, Refill Request Adult Primary Care- MD Marino [address] [place] [address], [address] [place] [address] [place] [address] [phone] Allergies Active Allergy Reactions Severity Noted Date Comments Codeine Other - See comments 05/29/2012 Drugged up feeling documented as of this encounter (statuses as of 09/10/2019) Medications Medication Sig Dispensed Refills Start End Status Date Date albuterol (PROVENTIL) 2 04/19/20 Active 2.5 mg /3 mL (0.083 %) 15 nebulizer solution albuterol (PROVENTIL Inhale 2 Puffs 8.5 g 3 11/21/19 Active HFA) 90 mcg/actuation every 4 (four) 17 inhaler hours as needed for Wheezing or Shortness of Breath. losartan 100 mg Take 1 tablet by 90 tablet 0 01/31/20 Active tabletIndications: mouth daily. 18 Essential hypertension, benign albuterol 2.5 mg /3 mL Inhale 3 mL 1 Box 3 04/14/20 Active (0.083 %) nebulizer every 4 (four) 18 solution hours. May also nebulize one extra every 6 hours. montelukast 10 mg Take 1 tablet by 90 tablet 3 04/21/20 Active tablet mouth daily. 18 Take one tablet by mouth q. at bedtime cyanocobalamin 1,000 1 mL by 12 mL 3 10/30/19 Active mcg/mL Intramuscular 19 injectionIndications: route weekly. B12 deficiency ergocalciferol, Take 1 capsule 12 capsule 3 11/02/19 Active vitamin d2, (VITAMIN by mouth weekly. 19 D2) 50,000 unit capsuleIndications: Thin nails, Osteopenia, unspecified location hydroCHLOROthiazide Take 2 tablets 180 tablet 3 11/24/19 Active 12.5 mg by mouth every 19 tabletIndications: morning. Essential hypertension, benign TRIAMCINOLONE APPLY TO 80 g 1 02/12/20 Active ACETONIDE 0.1 % AFFECTED AREA 19 creamIndications: TOPICALLY 2 Rash, Eczema, (TWO) TIMES unspecified type DAILY. levothyroxine 137 mcg TAKE 1 TABLET BY 90 tablet 1 02/20/20 Active tabletIndications: MOUTH EVERY 19 Hypothyroidism, MORNING unspecified type fexofenadine 180 mg Take 180 mg by 0 Active tablet mouth daily. AZELASTINE 0.05 % PLACE 1 DROP IN 6 mL 11 04/25/20 Active ophthalmic BOTH EYES 2 solutionIndications: (TWO) TIMES Other chronic allergic DAILY. conjunctivitis of both eyes pregabalin (LYRICA) 50 TAKE 1 CAPSULE 180 capsule 1 06/01/19 Active mg capsuleIndications: BY MOUTH TWICE A 20 Neuropathy DAY alendronate 70 mg One tablet once 12 tablet 3 06/01/19 Active tabletIndications: a week 20 Osteoporosis mometasone (NASONEX) 2 sprays in each 1 Bottle 11 06/01/19 Active 50 mcg/actuation nasal nostril once a 20 sprayIndications: day Seasonal allergies B Complex Vitamins Take 1 tablet by 90 tablet 3 06/01/19 Active (B-COMPLEX) mouth daily. 20 tabletIndications: Nail problem ciprofloxacin HCl Take 1 tablet by 14 tablet 1 08/16/19 Active (CIPRO) 500 mg mouth every 12 20 tabletIndications: (twelve) hours. Diverticulitis hyoscyamine (LEVSIN) Take 1 tablet by 20 tablet 1 08/16/19 Active 0.125 mg mouth 2 (two) 20 tabletIndications: times daily as Diverticulitis needed for Pain (scale 1-3). hydroxychloroquine 200 Take 1 tablet by 180 tablet 0 08/17/19 Active mg tabletIndications: mouth 2 (two) 20 Systemic lupus times daily. Dx: erythematosus, M32.9 unspecified SLE type, unspecified organ involvement status VALACYCLOVIR 1 gram TAKE 1 TABLET BY 35 tablet 1 09/10/19 Active tabletIndications: MOUTH TWICE 20 Fever blister DAILY FOR 5 DAYS, THEN TAKE 1 TABLET BY MOUTH EVERY DAY VALACYCLOVIR 1 gram TAKE 1 TABLET BY 60 tablet 0 10/29/19 tabletIndications: MOUTH TWICE 2020 Fever blister DAILY FOR 5 DAYS, THEN TAKE 1 TABLET BY MOUTH EVERY DAY Hospital, Clinic, or Other Ordered Dose Route Frequency Start Date End Date Status Facility Administered Medication cyanocobalamin (VITAMIN B12) 1000 mcg IM QWEEKLY 11/20/2018 Active injection 1,000 mcg documented as of this encounter (statuses as of 09/10/2019) Active Problems Problem Noted Date Other chronic allergic conjunctivitis of both eyes Vitamin D insufficiency 01/17/2017 Leukopenia, unspecified type 10/25/2016 Long-term use of Plaquenil 10/25/2016 Shingles outbreak 08/18/2015 SLE (systemic lupus erythematosus) 08/18/2015 Vitamin D deficiency 08/18/2015 Hyperproteinemia 08/18/2015 Anti-EVS MANAGER antibodies present 07/14/2015 USP use of bisphosphonates 07/14/2015 Normocytic anemia 06/30/2014 Peripheral neuropathy 03/12/2013 MCTD (mixed connective tissue disease) 01/07/2013 Osteopenia 05/29/2012 Encounter for long-term (current) use of steroids 05/2011 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 GERD (gastroesophageal reflux disease) 11/16/2010 Encounter for long-term (current) use of other medicat ions 11/16/2010 Systemic lupus erythematosus 08/16/2010 Inflammatory polyarthropathy 10/27/2007 Overview: ICD10 Diagnosis Term Head Of Integrated Media Utility Essential hypertension, benign documented as of this encounter (statuses as of 09/10/2019) Resolved Problems Problem Noted Date Resolved Date Muscle weakness 06/30/2014 11/18/2015 Numbness of hand 01/11/2013 11/18/2015 History of pneumonia 08/27/2012 11/18/2015 Acute upper respiratory infection 08/27/20122015 Overview: ICD10 Diagnosis Term Head Of Integrated Media Utility Chronic anemia 06/20/2011 11/18/2015 Other voice and resonance disorders 09/14/200901/2016 documented as of this encounter (statuses as of 09/10/2019) Immunizations Name Administration Dates Next Due DTAP 06/23/2009 Influenza Virus Vaccine 02/27/2012, 02/28/2009 Influenza Virus Vaccine Quad .5 mL IM 6+ MO 02/16/2019, 07/2017 Influenza Virus Vaccine Quad IM 3+ [...] Office Visit Internal Medicine Paula Murray MD [address] [place] [address] [phone] Health Maintenance Due Date Last Done Comments [...] filedocumented in this encounter Visit Diagnoses Diagnosis Fever blister Herpes simplex without mention of compli cation documented in this encounter Insurance Payer Benefit Plan / Subscriber ID Effective Dates Phone Addre ss Type Group [facility] ST[facility] xxxxxxxxx 2011-Present Medicaid COMM PLAN - PLUS MANAGED MEDICAID documented as of this encounter Advance Directives Type Date Recorded Patient Child Care Provider Explanati on Advance Directives and Living Will Power of Construction Carpenters Helper
--- OUTSIDE RECORDS SUMMARY | 2019-11-02 16:22 | XMS REPORT | Summary of Care ---
:1960 Author Organization [facility] - [facility] Address [address] [place] [address] Care Team Providers Name Role Phone Gilberto Murray MD Primary Care Provider Reason for Visit Reason Comments Refill Request Encounter Details Date Type Department Care Team Description 10/01/2019 Refill [facility] Pediatric and Stephy Murray, Refill Request Adult Primary Care- MD Marino [address] [place] [address] [address] [facility] , [address] [place] [address] [place] [address] [phone] Allergies Active Allergy Reactions Severity Noted Date Comments Codeine Other - See comments 05/29/2012 Drugged up feeling documented as of this encounter (statuses as of 10/01/2019) Medications Medication Sig Dispensed Refills Start End [...] Intramuscular 19 injectionIndications: route weekly. B12 deficiency hydroCHLOROthiazide Take 2 tablets 180 tablet 3 [...] 11 04/25/20 Active ophthalmic BOTH EYES 2 19 solutionIndications: (TWO) TIMES Other chronic allergic DAILY. [...] TAKE 1 TABLET BY MOUTH EVERY DAY ERGOCALCIFEROL, TAKE ONE CAPSULE 12 capsule 3 10/01/19 Active VITAMIN D2, 1,250 mcg BY MOUTH ONE 20 (50,000 unit) TIME PER WEEK capsuleIndications: Thin nails, Osteopenia, unspecified location ergocalciferol, Take 1 capsule 12 capsule 3 11/02/19 vitamin d2, (VITAMIN by mouth weekly. 20 20 D2) 50,000 unit capsuleIndications: Thin nails, Osteopenia, unspecified location Hospital, Clinic, or Other Ordered Dose Route Frequency Start Date End Date Status Facility Administered Medication cyanocobalamin (VITAMIN B12) 1000 mcg IM QWEEKLY 11/20/2018 Active injection 1,000 mcg documented as of this encounter (statuses as of 10/01/2019) Active Problems Problem Noted Date Other chronic allergic conjunctivitis of both eyes Vitamin D insufficiency 01/17/2017 Leukopenia, unspecified type 10/25/2016 Long-term use of Plaquenil 10/25/2016 Shingles outbreak 08/18/2015 SLE (systemic lupus erythematosus) 08/18/2015 Vitamin D deficiency 08/18/2015 Hyperproteinemia 08/18/2015 Anti-PORCELAIN ENAMEL REPAIRER antibodies present 07/14/2015 senior living use of bisphosphonates 07/14/2015 Normocytic anemia 06/30/2014 Peripheral neuropathy 03/12/2013 MCTD (mixed connective tissue disease) 01/07/2013 Osteopenia 05/29/2012 Encounter for long-term (current) use of steroids 05/2011 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 GERD (gastroesophageal reflux disease) 11/16/2010 Encounter for long-term (current) use of other medicat ions 11/16/2010 Systemic lupus erythematosus 08/16/2010 Inflammatory polyarthropathy 10/27/2007 Overview: ICD10 Diagnosis Term Pattern Drum Maker Utility Essential hypertension, benign documented as of this encounter (statuses as of 10/01/2019) Resolved Problems Problem Noted Date Resolved Date Muscle weakness 06/30/2014 11/18/2015 Numbness of hand 01/11/2013 11/18/2015 History of pneumonia 08/27/2012 11/18/2015 Acute upper respiratory infection 08/27/20122015 Overview: ICD10 Diagnosis Term Pattern Drum Maker Utility Chronic anemia 06/20/2011 11/18/2015 Other voice and resonance disorders 09/14/200901/2016 documented as of this encounter (statuses as of 10/01/2019) Immunizations Name Administration Dates Next Due DTAP [...] Office Visit Internal Medicine Paula Murray MD [address] [place] [address] [phone] Health Maintenance Due Date Last Done Comments [...] filedocumented in this encounter Visit Diagnoses Diagnosis Thin nails Other specified disease of nail Osteopenia, unspecified location documented in this encounter Insurance Payer Benefit Plan / Subscriber ID Effective Dates Phone Addre ss Type Group [facility] ST[facility] xxxxxxxxx 2011-Present Medicaid COMM PLAN - PLUS MANAGED MEDICAID documented as of this encounter Advance Directives Type Date Recorded 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
--- OUTSIDE RECORDS SUMMARY | 2019-11-02 16:22 | XMS REPORT | Summary of Care ---
:1960 Author Organization [facility] - [facility] Address [address] [place] [address] Care Team Providers Name Role Phone Gilberto Murray MD Primary Care Provider Reason for Visit Reason Comments Orders Encounter Details Date Type Department Care Team Description 09/27/2019 Telephone [facility] Pediatric and Stephy Murray Orders Adult Primary Care- MD Marino [address] [place] [address] [address] [facility], [address] [place] [address] [place] [address] [phone] Allergies Active Allergy Reactions Severity Noted Date [...] mouth every 9 Essential hypertension, morning. benign TRIAMCINOLONE ACETONIDE APPLY TO AFFECTED 80 g [...] (B-COMPLEX) mouth daily. 0 tabletIndications: Nail problem ciprofloxacin HCl Take 1 tablet by 14 tablet 1 Active (CIPRO) 500 mg mouth every 12 0 tabletIndications: (twelve) hours. Diverticulitis hyoscyamine (LEVSIN) Take 1 tablet by 20 tablet 1 Active 0.125 mg mouth 2 (two) 0 tabletIndications: times daily as Diverticulitis needed for Pain (scale 1-3). hydroxychloroquine 200 Take 1 tablet by 180 tablet 0 04/07/202 Active mg tabletIndications: mouth 2 (two) 0 Systemic lupus times daily. 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 GERD (gastroesophageal reflux disease) 11/16/2010 Encounter for long-term (current) use of other medicat ions 11/16/2010 Systemic lupus erythematosus 08/16/2010 Inflammatory polyarthropathy 10/27/2007 Overview: ICD10 Diagnosis Term Reverse Unit Operator Fisherman Utility Essential hypertension, benign documented as of this encounter (statuses as of 10/01/2019) Resolved Problems Problem Noted Date Resolved Date Muscle weakness 06/30/2014 11/18/2015 Numbness of hand 01/11/2013 11/18/2015 History of pneumonia 08/27/2012 11/18/2015 Acute upper respiratory infection 08/27/20122015 Overview: ICD10 Diagnosis Term Reverse Unit Operator Fisherman Utility Chronic anemia 06/20/2011 11/18/2015 Other voice [...] Office Visit Internal Medicine Paula Murray MD [address] [place] [address] [phone] Name Type Priority Associated Diagnoses Order S chedule CBC WITH DIFF LAB Routine Anemia, unspecified type 1 Occurrences starting 09/30/2019 unti l 09/29/2020 Health Maintenance Due Date Last Done Comments [...] filedocumented in this encounter Visit Diagnoses Diagnosis Anemia, unspecified type - Primary documented in this encounter Insurance Payer Benefit Plan / Subscriber ID Effective Dates Phone Addre ss Type Group [facility] xxxxxxxxx 2011-Present Medicaid COMM PLAN - PLUS MANAGED MEDICAID documented as of this encounter Advance Directives Type Date Recorded Patient Benefits Manager Explanati on Advance Directives and Living Will Power of Horse Rancher
--- NOTE | 2019-11-02 16:23 | RAD REPORT ---
EXAM DESCRIPTION: RAD - Lumbar Spine 3 Views - 11/02/2019 4:05 pm CLINICAL HISTORY: Back pain FINDINGS: Mild compression fracture involves the superior endplate of the L 2 vertebral body which a ppears acute. No dislocation Osteoporosis
--- OUTSIDE RECORDS SUMMARY | 2019-11-02 16:23 | XMS REPORT | Summary of Care ---
:1960 Author Organization [facility] Address [address] [place] [id number] Care Team Providers Name Role Phone Gilberto Murray MD Primary Care Provider Reason for Referral (Routine) Status Reason Specialty Diagnoses / Referred By Referred To Procedures Contact Contact New Request Patient Physical Diagnoses Weakness of proximal end of lower extremity Terri, Syst, Requested Therapy Procedures CONSULT/REFERRAL PHYSICAL THERAPY Laina Macias Referring/Pcp Specific MD Prov Not In Provider [address] [place] [address] [address] [place] [address] Reason for Visit Reason Comments Follow-up Encounter Details Date Type Department Care Team Description 06/01/2019 Office Visit [facility] Pediatric Julia Murray ss of proximal end of lower extremity (Primary Dx); and Adult Primary Denilson Miller Neuropathy; [address] Osteoporosis; [address] [place] [address], [facility] [address] Need for vaccination; [address] [place] [address] Systemic lupus erythematosus, unspecifie d SLE type, unspecified organ involvement status; [place], [place] [phone] Seasonal allergies; [id number] Vitamin D deficiency; [phone] Vitamin B12 def iciency; Anemia, unspeci fied type; Nail problem; Leg swelling Allergies Active Allergy Reactions Severity Noted Date Comments Codeine Other - See comments 05/29/2012 Drugged up feeling documented as of this encounter (statuses as of 10/06/2019) Medications Medication Sig Dispensed Refills Start End [...] Intramuscular 019 injectionIndications: route weekly. B12 deficiency hydroCHLOROthiazide Take [...] Take 1 tablet by 90 tablet 3 01/21/2 Active (B-COMPLEX) mouth daily. 020 tabletIndications: Nail problem alendronate (FOSAMAX) One tablet once 12 tablet 3 / Discontinued 70 mg a week 2019 (Reorder) tabletIndications: Osteoporosis mometasone (NASONEX) 2 sprays in each 1 Bottle 11 Discontinued 50 mcg/actuation nasal nostril once a 018 20 20 (Reorder) spray day VALACYCLOVIR 1 gram TAKE 1 TABLET BY 60 tablet 0 / Discontinued tabletIndications: MOUTH TWICE 2019 Fever blister DAILY FOR 5 DAYS, THEN TAKE 1 TABLET BY MOUTH EVERY DAY ergocalciferol, Take 1 capsule 12 capsule 3 Discontinued vitamin d2, (VITAMIN by mouth weekly. 019 20 20 D2) 50,000 unit capsuleIndications: Thin nails, Osteopenia, unspecified location pregabalin (LYRICA) 50 TAKE 1 CAPSULE 180 capsule 1 Discontinued mg capsuleIndications: BY MOUTH TWICE A 2019 (Reorder) Neuropathy DAY hydroxychloroquine 200 Take 1 tablet by 180 tablet 1 08/16/ Discontinued mg tabletIndications: mouth 2 (two) 2019 (Reorder) Systemic lupus times daily. erythematosus, unspecified SLE type, unspecified organ involvement status Hospital, Clinic, or Other Ordered Dose Route Frequency Start Date End Date Status Facility Administered Medication cyanocobalamin (VITAMIN 1000 mcg IM QWEEKLY 11/20/2018 Active B12) injection 1,000 mcg cyanocobalamin (VITAMIN 1000 mcg IM [id number] 03/01/201908/15 Ended B12) injection 1,000 mcg documented as of this encounter (statuses as of 10/06/2019) Active Problems Problem Noted Date Other chronic allergic conjunctivitis of both eyes Vitamin D insufficiency 01/17/2017 Leukopenia, unspecified type 10/25/2016 Long-term use of Plaquenil 10/25/2016 Shingles outbreak 08/18/2015 SLE (systemic lupus erythematosus) 08/18/2015 Vitamin D deficiency 08/18/2015 Hyperproteinemia 08/18/2015 Anti-CARPENTER REPAIR antibodies present 07/14/2015 senior living use of bisphosphonates 07/14/2015 Normocytic anemia 06/30/2014 Peripheral neuropathy 03/12/2013 MCTD (mixed connective tissue disease) 01/07/2013 Osteopenia 05/29/2012 Encounter for long-term (current) use of steroids 05/2011 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 GERD (gastroesophageal reflux disease) 11/16/2010 Encounter for long-term (current) use of other medicat ions 11/16/2010 Systemic lupus erythematosus 08/16/2010 Inflammatory polyarthropathy 10/27/2007 Overview: ICD10 Diagnosis Term Laundry Aid Utility Essential hypertension, benign documented as of this encounter (statuses as of 10/06/2019) Resolved Problems Problem Noted Date Resolved Date Muscle weakness 06/30/2014 11/18/2015 Numbness of hand 01/11/2013 11/18/2015 History of pneumonia 08/27/2012 11/18/2015 Acute upper respiratory infection 08/27/20122015 Overview: ICD10 Diagnosis Term Laundry Aid Utility Chronic anemia 06/20/2011 11/18/2015 Other voice and resonance disorders 09/14/200901/2016 documented as of this encounter (statuses as of 10/06/2019) Immunizations Name Administration Dates Next Due DTAP [...] of this encounter Last Filed Vital Signs Vital Sign Reading Time Taken Comments Blood Pressure 131/81 06/01/2019 7:14 AM CAMPAIGN DEVELOPER Pulse 77 06/01/2019 7:14 AM CAMPAIGN DEVELOPER Temperature 37.7 C (99.9 F) 06/01/2019 7:14 AM CAMPAIGN DEVELOPER Respiratory Rate 18 06/01/2019 7:14 AM CAMPAIGN DEVELOPER Oxygen Saturation 100% 06/01/2019 7:14 AM CAMPAIGN DEVELOPER Inhaled Oxygen Concentration - - Weight 162.8 kg (359 lb) 06/01/2019 7:14 AM CAMPAIGN DEVELOPER Height 175.3 cm (5' 9") 06/01/2019 7:14 AM CAMPAIGN DEVELOPER Body Mass Index 53.02 06/01/2019 7:14 AM CAMPAIGN DEVELOPER documented in this encounter Patient Instructions Patient InstructionsJoselin Luciano - 06/01/2019 7:00 AM CSTLook up and his polyphenol blend "Vital Reds". You can go to [email or web address] (f. YongoPal)/ And https://eToro/ Meat, Poultry, and Fish: Picking Healthy Proteins Cholesterol and saturated fat can raise your blood cholesterol and make heart disease worse. Chickenand fish have less saturated fat than most red meat. Why are chicken, fish and beans better to eat than red meat? Saturated and trans fats can raise your blood cholesterol and make heart disease worse. Chicken and fish have less saturated fat than most red meat. Why are chicken, fish and beans better to eat than red meat? In general, red meats (beef, pork and campoverde) have more saturated (bad) fat than chicken, fish and vegetable proteins such as beans. Saturated and trans fats can raise your blood cholesterol and make heart disease worse. The unsaturated fats in fish, such as salmon, actually have health benefits. [place]-3 fatty acids, found in fish and some plant sources, as part of a heart-healthy diet, can help reducethe risk of heart failure, coronary heart disease, cardiac arrest and the most common type of stroke(ischemic). There are many types of beans locke, kidney, garbanzo, soybeans, etc. and theyre all good for you. Put lentils, split peas and black-eyed peas on the list, too! You can prepare them without saturated and trans fats for a healthy meal. Tips for People Who Like Meat Its OK to eat red meat as long as you limit the amount. The [place] [employer] Association recommendsthat people limit lean meat, skinless chicken and nonfried fish to 5 ounces per day, total. Eat 8ounces of non-fried fish (particularly fatty fish) each week, which may be divided over two 3.5- to 4-ounce servings. Fatty fish like salmon, mackerel, rodrigues, asher trout, sardines and albacore tuna are high in omega-3 fatty acids. Use the tips below to lower the amount of saturated fat and trans fat you get when you eat meat. ? One portion of meat is about the size of a deck of cards or three ounces. ? Choose lean cuts of meat. Lean cuts usually contain the words round, loin or sirloin on the package. ? Trim off as much fat as you can before cooking and pour off the melted fat after cooking. ? Use healthier cooking methods: bake, broil, stew and grill. Note: Eating a lot of meat is not a healthy way to lose weight, especially if you have heart disease. How to Use More Chicken, Fish and Beans ? Breakfast ? Sprinkle a small amount of chopped, unsalted almonds, peanuts or walnuts on your oatmeal or cereal. ? Make scrambled eggs or a vegetable omelet. ? Prepare soy-protein meat substitutes (low-sodium) for quesada and sausage. ? Lunch ? Slice up leftover chicken for sandwiches. ? Have a bowl of low sodium lim or lentil soup. ? Eat a tuna sandwich on whole grain bread (skip the olson and mix tuna with a ripe avocado). ? Make a exhibits curator salad with leftover chicken, low-fat, low-sodium cheese and hard-boiled eggs. ? Have a seafood salad. ? Dinner ? Bradshaw, bake or microwave chicken breasts. Remove skin before cooking. ? Sprinkle fish fillets with low-fat Serbian dressing and bake them. ? Wrap a whole fish in foil with lemon and onion slices; then bake or grill. ? Add beans, unsalted nuts or low-fat, low sodium cheese to your salad. ? Make low-sodium lim soup or a casserole. ? Make black lim burgers or garbanzo lim burgers from scratch. Many people choose not to eat meat for mu-ism reasons or because of other concerns, including health. You can get all the nutrients your body needs without eating meat. For people who dont want to eat meat (or much meat), there are many healthy ways to get enough protein. AHA Recommendation ? Choose nonfried fish, shellfish, poultry without the skin, and trimmed lean meats, no more than 5.5 ounces, cooked, per day. ? Enjoy 8 ounces of nonfried fish (especially oily fish) each week, which may be divided over two 3.5- to 4-ounce servings. ? Choose seasonings with no or lower amounts of salt and sodium such as spices, herbs and other flavorings in cooking and at the table. ? Select meat substitutes such as dried beans, peas, lentils or tofu (soybean curd) in entrees, salads or soups. Choose from ? Non-fried fish and shellfish such as shrimp, crab and lobster are low in saturated fat and are a healthy alternative to many cuts of meat. ? Fish high in omega-3 fatty acids such as mackerel, asher trout, rodrigues, sardines, albacore tuna and salmon. Some types of fish may contain high levels of mercury, PCBs (polychlorinated biphenyls), dioxins and other environmental contaminants. Shark, swordfish, tilefish (dubose deluna or dubose snapper) and desean mackerel are examples. Women who are , planning to become or nursing and young children should avoid eating potentially contaminated fish. ? Chicken and turkey (without skin); ground turkey. ? Lean beef (round, sirloin, alirio, loin). Buy "choice" or "select" grades of beef rather than "prime." ? Lean or extra lean ground beef (no more than 15% fat). ? Lean veal (except commercially ground). ? Lean ham, lean pork (tenderloin, loin chop). Ham and Loving quesada are higher in sodium (salt) than other meats. ? Lean campoverde (leg, arm, loin). ? Lean cuts of emu, buffalo and ostrich. These are very low in saturated fat and sodium. ? Wild game (rabbit, pheasant, venison, wild duck without skin). These usually have less saturated fat than animals raised for market (duck, goose). ? Processed sandwich meats (turkey, chicken, turkey ham, turkey pastrami or lean boiled ham). Check the amount of sodium; some have 25% or more of the daily value. Shopping and preparation tips 1. A 3-ounce cooked portion is about the size of a deck of cards. To help you epic anesthesia analyst serving sizes, a3-ounce portion equals: ? 1/2 of a chicken breast or a chicken leg with thigh (without skin) ? 3/4 cup of flaked fish ? 2 thin slices of lean roast beef (each slice 3" x 3" x 1/4") 2. Choose cuts of meat that have the least amount of visible fat and trim this visible fat off of meats. Buy "choice " or " select " grades of beef rather than "prime." 3. Instead of frying, prepare meats by baking, broiling, roasting, microwaving or stir-frying. Pour off the fat after dennison. 4. Remove the skin and fat under the skin before cooking poultry pieces. (The exception is when roasting a whole chicken or turkey. Remove the skin before carving and serving the meat.) Choose poultry that has not been injected with fats or broths. 5. Chill meat juices after cooking, so that you can easily skim off the hardened fat. Then you can add the juices to stews, soups and gravy. 6. Look for frozen dinners and entries that are low in saturated fat and sodium. 7. A one-cup serving of cooked beans, peas or lentils, or soybean curd (tofu) can replace a 2-ounce serving of meat, poultry or fish. Two ounces of peanut butter counts as 1 ounce of meat. Note: Adults over age 50 should get vitamin B-12 from lean meat, fortified foods or vitamin supplements to meet the recommended intake of 2.4 micrograms (mcg) of vitamin B-12 per day. 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 who is being seen todayfor follow up of chronic conditions. Patient states she has leg weakness and would like to do PT. She states she has a hard time getting up from sitting position to a standing position, she reports she has to "rock" herself to help get up. Patient states she's been cutting back on eating meats and eating more vegetables. She has some ridging on her fingernails, she has no spooning. Patient states her nails tear and break easily. Patient states occasionally both her feet and legs swell up. Health Maintenance Discussed shingles, patient will talk to pharmacy. Patient is due for meningitis vaccine, patient will get today in clinic. Medications reviewed in EPIC, past medical history and social history and allergies reviewed. Review of Systems Respiratory: Negative for shortness of breath. Cardiovascular: Positive for leg swelling. Negative for chest pain. Neurological: Positive for weakness. Endocrine: + weak nails PE: Blood pressure 131/81, pulse 77, temperature 37.7 C (99.9 F), temperature source Temporal Artery, resp. rate 18, height 5' 9" (1.753 m), weight 359 lb (162.8 kg), SpO2 100 %. Physical Exam Constitutional: She is oriented to person, place, and time. She appears well- developed and well-nourished. No distress. HENT: Head: Normocephalic and atraumatic. Right Ear: External ear normal. Left Ear: External ear normal. Nose: Nose normal. No tracheal deviation Eyes: Right eye exhibits no discharge. Left eye exhibits no discharge. No scleral icterus. Left and right eyelids normal. Neurological: She is alert and oriented to person, place, and time. No tremors. Normal gait. Skin: Skin is warm and dry. She is not diaphoretic. Psychiatric: She has a normal mood and affect. Her behavior is normal. Pleasant. Vitals reviewed. Results: No new labs Education & Visit Time: this visit involved counseling and coordination of care that comprised more than 50% of the visit time. I spent at least 25 mintues total time with the patient. Of that time, at least 1 minute was spent on exam, and at least 24 minutes was spent obtaining history and counseling the patient regarding risks and benefits of treatment, treatment options and prevention. 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 who is being seen today forchronic medical conditions. Weakness of proximal end of lower extremity (primary encounter diagnosis) Comment: she has trouble getting up from a sitting to standing position. Patient would like to do PT. Plan: CONSULT/REFERRAL PHYSICAL THERAPY Neuropathy Comment: stable. Needs refill. Plan: pregabalin (LYRICA) 50 mg capsule Osteoporosis Comment: needs refill. Plan: alendronate 70 mg tablet Systemic lupus erythematosus, unspecified SLE type, unspecified organ involvement status, Need for vaccination Comment: patient is due for vaccine due to chronic conditions. Plan: MENINGOCOCCAL B VACCINE(BEXSERO) 2 DOSE SERIES, IM Seasonal allergies Comment: stable. Needs refill. Plan: mometasone (NASONEX) 50 mcg/actuation nasal spray Vitamin D deficiency Comment: will check labs. Plan: VITAMIN D, 25-OH Vitamin B12 deficiency Comment: will check labs. Plan: VITAMIN B12, LEVEL, FOLATE Anemia, unspecified type Comment: will check labs. Plan: IRON, TOTAL IRON BINDING CAPACITY, FERRITIN SERUM Nail problem Comment: she has some ridging on her fingernails. Could be due to low vitamins, will try B complex. Plan: B Complex Vitamins (B-COMPLEX) tablet Leg swelling Comment: could be related to inflammation. Plan: patient will work on diet. Return in about 6 months (around 11/30/2019) for Chronic medical conditions. Plan of care, desired health behaviors, goals,& medication discussed with patient and educational resources and self management tools provided as appropriate. Patient/family/guardian voices understanding. Patient verbalized understanding & agrees to plan of care. Barriers to care: none Ability to manage care: good Scribe's Attestation I, Joselin Luciano , am scribing for, and in the presence of, Laina Murray MD who performed the services described here-in. Joselin Luciano, June 01, 2019, 7:21 AM Physician's Attestation I, Laina Murray MD, personally performed the services described in this documentation , asscribed by, Joselin Luciano in my presence and it is both accurate and complete. Laina Murray MD June 14, 2019, 8:54 PM AIGN DEVELOPER documented in this encounter Plan of Treatment Date Type Specialty Care Team Description 12/03/2019 Office Visit Internal Medicine Paula Murray MD [address] [place] [address] [phone] Name Type Priority Associated Diagnoses Date/Ti me VITAMIN D, 25-OH LAB Routine Vitamin D deficiency 12:48 PM CDT VITAMIN B12, LEVEL LAB Routine Vitamin B12 deficiency 10/06/2019 12:48 PM CDT FOLATE LAB Routine Vitamin B12 deficiency 10/05 12:48 PM CDT Name Type Priority Associated Diagnoses Order S chedule IRON LAB Routine Anemia, unspecified type Ord ered: 06/01/2019 TOTAL IRON BINDING LAB Routine Anemia, unspecified ty pe Ordered: 06/01/2019 CAPACITY FERRITIN SERUM LAB Routine Anemia, unspecified type O rdered: 06/01/2019 Health Maintenance Due Date Last Done Comments [...] history exists documented as of this encounter Procedures Procedure Name Priority Date/Time Associated Diagnosis Comme nts MENINGOCOCCAL B VACCINE, Routine 06/01/2019 7:34 AM Nee d for vaccination OMV, 2 DOSE, IM CAMPAIGN DEVELOPER Systemic lupus erythematosus, unspecified SLE type, unspecified organ involvement status documented in this encounter Results Not on filedocumented in this encounter Visit Diagnoses Diagnosis Weakness of proximal end of lower extrem ity - Primary Neuropathy Mononeuritis of unspecified site Osteoporosis Osteoporosis, unspecified Need for vaccination Need for prophylactic vaccination and in oculation against unspecified single disease Systemic lupus erythematosus, unspecifie d SLE type, unspecified organ involvement status Seasonal allergies Allergic rhinitis, cause unspecified Vitamin D deficiency Unspecified vitamin D deficiency Vitamin B12 deficiency Other B-complex deficiencies Anemia, unspecified type Nail problem Unspecified disease of nail Leg swelling Swelling of limb documented in this encounter Administered Medications Medication Order MAR Action Action Date Dose Rate Site cyanocobalamin (VITAMIN Given 06/01/2019 7:56 1,000 mcg Left Deltoid-IM B12) injection 1,000 mcg AM CAMPAIGN DEVELOPER 1,000 mcg, Intramuscular, [id number], 12 doses, First dose on Fri03/01/19 at 0815, Last dose on Fri08/02/19 at 0815, Routine Given 05/21/2019 9:58 AM CAMPAIGN DEVELOPER 1,000 mcg Left Deltoid-IM Given 03/01/2019 8:22 AM CDT 1,000 mcg Left Arm documented in this encounter Insurance Payer Benefit Plan / Subscriber ID Effective Dates Phone Addre ss Type Group [facility] xxxxxxxxx 2011-Present Medicaid COMM PLAN - PLUS MANAGED MEDICAID documented as of this encounter Advance Directives Type Date Recorded Patient 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
--- OUTSIDE RECORDS SUMMARY | 2019-11-02 16:23 | XMS REPORT | Summary of Care ---
:1960 Author Organization [facility] - Health Address [address] [place] [address] Care Team Providers Name Role Phone Gilberto Murray MD Primary Care Provider Encounter Details Date Type Department Care Team Description 10/06/2019 Orders Only [facility] Doctor Unassigned, No [address] [facility] Name [place] [phone] [place] [address] Allergies Active Allergy Reactions Severity Noted Date [...] Intramuscular 9 injectionIndications: route weekly. B12 deficiency hydroCHLOROthiazide 12.5 Take 2 tablets by 180 [...] 0 Active mg tabletIndications: mouth 2 (two) 0 Systemic lupus times daily. Dx: erythematosus, M32.9 unspecified SLE type, unspecified organ involvement status VALACYCLOVIR 1 gram TAKE 1 TABLET BY 35 tablet 1 Active tabletIndications: Fever MOUTH TWICE DAILY 0 blister FOR 5 DAYS, THEN TAKE 1 TABLET BY MOUTH EVERY DAY ERGOCALCIFEROL, VITAMIN TAKE ONE CAPSULE 12 capsule 3 10/01/19 2 Active D2, 1,250 mcg (50,000 BY MOUTH ONE TIME 0 unit) PER WEEK capsuleIndications: Thin nails, Osteopenia, unspecified location Hospital, [...] Vitamin D deficiency 08/18/2015 Hyperproteinemia 08/18/2015 Anti-HEAD CLEANING PORTER antibodies present 07/14/2015 terminal worker use of bisphosphonates 07/14/2015 Normocytic anemia 06/30/2014 Peripheral neuropathy 03/12/2013 MCTD (mixed connective tissue disease) 01/07/2013 Osteopenia 05/29/2012 Encounter for long-term (current) use of steroids 05/2011 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 GERD (gastroesophageal reflux disease) 11/16/2010 Encounter for long-term (current) use of other medicat ions 11/16/2010 Systemic lupus erythematosus 08/16/2010 Inflammatory polyarthropathy 10/27/2007 Overview: ICD10 Diagnosis Term Prop Maker Utility Essential hypertension, benign documented as of this encounter (statuses as of 10/06/2019) Resolved Problems Problem Noted Date Resolved Date Muscle weakness 06/30/2014 11/18/2015 Numbness of hand 01/11/2013 11/18/2015 History of pneumonia 08/27/2012 11/18/2015 Acute upper respiratory infection 08/27/20122015 Overview: ICD10 Diagnosis Term Prop Maker Utility Chronic anemia 06/20/2011 11/18/2015 Other [...] Visit Internal Medicine Paula Murray MD [address] [address] 15 [phone] Health Maintenance Due Date Last Done Comments [...] Name Priority Date/Time Associated Diagnosis Comme nts ASSIGNMENT OF BENEFITS Routine 10/06/2019 12:32 PM CDT documented in this encounter Results Not on filedocumented in this encounter Insurance Payer Benefit Plan / Subscriber ID Effective Dates Phone Addre ss Type Group [facility] xxxxxxxxx 2011-Present Medicaid COMM PLAN - PLUS MANAGED MEDICAID documented as of this encounter Advance Directives Type Date Recorded Patient 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
--- OUTSIDE RECORDS SUMMARY | 2019-11-02 16:24 | XMS REPORT | Summary of Care ---
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 Auth/Cert Status Reason Specialty Diagnoses / Procedures Referred By Sachin neff Referred To Contact Phlebotomy Diagnoses Anemia, unspecified type Adc Pob Lab Draw Procedures CBC FERRIT TIBC IRON FOLATE B12 VIT D 25 [place] Professional Office Building [address] [place] [address] , [address] [place] [address] Phone: Fax: Encounter Details Date Type Department Care Team Description 10/06/2019 Project Analyst Visit [facility] tSephy Murray MD [address] [place] [address] [address] [place] [address] Anemia, unspecified Professional Office Pob, Adc Lab Main type Building Phlebotomy Lab Professional Office Building [address] [place] [address] , [address] [place] [address] Allergies Active Allergy Reactions Severity Noted Date Comments Codeine Other - See comments 05/29/2012 Drugged up feeling documented as of this encounter (statuses as of 10/07/2019) Medications Medication Sig Dispensed Refills Start End [...] as of this encounter (statuses as of 10/07/2019) Active Problems Problem Noted Date Other chronic allergic conjunctivitis of both eyes Vitamin D insufficiency 01/17/2017 Leukopenia, unspecified type 10/25/2016 Long-term use of Plaquenil 10/25/2016 Shingles outbreak 08/18/2015 SLE (systemic lupus erythematosus) 08/18/2015 Vitamin D deficiency 08/18/2015 Hyperproteinemia 08/18/2015 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 07/14/2015 Normocytic anemia 06/30/2014 Peripheral neuropathy 03/12/2013 MCTD (mixed connective tissue disease) 01/07/2013 Osteopenia 05/29/2012 Encounter for long-term (current) use of steroids 05/2011 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 GERD (gastroesophageal reflux disease) 11/16/2010 Encounter for long-term (current) use of other medicat ions 11/16/2010 Systemic lupus erythematosus 08/16/2010 Inflammatory polyarthropathy 10/27/2007 Overview: ICD10 Diagnosis Term It Infrastructure Manager Utility Essential hypertension, benign documented as of this encounter (statuses as of 10/07/2019) Resolved Problems Problem Noted Date Resolved Date Muscle weakness 06/30/2014 11/18/2015 Numbness of hand 01/11/2013 11/18/2015 History of pneumonia 08/27/2012 11/18/2015 Acute upper respiratory infection 08/27/20122015 Overview: ICD10 Diagnosis Term It Infrastructure Manager Utility Chronic anemia 06/20/2011 11/18/2015 Other voice and resonance disorders 09/14/200901/2016 documented as of this encounter (statuses as of 10/07/2019) Immunizations Name Administration Dates Next Due DTAP [...] Office Visit Internal Medicine Paula Murray MD [address] [place] [address] 15 [phone] Health Maintenance Due Date Last Done Comments MENINGOCOCCAL B VACCINES (2 06/29/2019 06/01/2019 of 2 - Risk Bexsero 2-dose series) Breast Cancer Screening 08/01/2019 07/31/2018, 10/25/2016, (MAMMOGRAM) 07/26/2015, Additional history exists Depression Screening 06/01/2020 06/01/2019 Zoster Recombinant Vaccine 06/01/2020 Postp oned from [...] Name Priority Date/Time Associated Diagnosis Comme nts CBC WITH DIFFERENTIAL Routine 10/06/2019 12:46 Anemia, unspeci fied Results for this PM CDT type procedure are i n the results section. CBC WITH DIFFERENTIAL Routine 10/06/2019 12:46 Anemia, unspeci fied Results for this PM CDT type procedure are i n the results section. TOTAL IRON BINDING Routine 10/06/2019 12:46 Anemia, unspecifie d Results for this CAPACITY PM CDT type procedure are i n the results section. IRON Routine 10/06/2019 12:46 Anemia, unspecified Resu lts for this PM CDT type procedure are i n the results section. FERRITIN SERUM Routine 10/06/2019 12:46 Anemia, unspecified Re sults for this PM CDT type procedure are i n the results section. documented in this encounter Results CBC WITH DIFFERENTIAL (10/06/2019 12:46 PM CDT) Pathologist Sig nature WBC 2.87 (L) 4.30 - 11.10 [facility] 10*3/L [facility] RBC 3.36 (L) 3.93 - 5.25 [facility] 10*6/L [facility] HGB 10.1 (L) 11.6 - 15.0 [facility] g/dL [facility] HCT 32.1 (L) 35.7 - 45.2 % [facility] MCV 95.5 80.6 - 95.5 fL [facility] MCH 30.1 25.9 - 32.8 pg [facility] MCHC 31.5 (L) 31.6 - 35.1 [facility] g/dL [facility] RDW-SD 42.7 39.0 - 49.9 fL [facility] RDW-CV 12.1 12.0 - 15.5 % [facility] PLT 191 166 - 358 [facility] 10*3/L [facility] MPV 10.8 9.5 - 12.9 fL [facility] NRBC/100 WBC 0.0 0.0 - 10.0 /100 [facility] WBCs [facility] NRBC x10^3 <0.01 10*3/L [facility] GRAN MAT (NEUT) % 57.6 % [facility] IMM GRAN % 0.30 % [facility] LYMPH % 31.0 % [facility] MONO % 8.7 % [facility] EOS % 2.1 % [facility] BASO % 0.3 % [facility] GRAN MAT x10^3(ANC) 1.65 (L) 1.88 - 7.09 [facility] 10*3/uL [facility] IMM GRAN x10^3 <0.03 0.00 - 0.06 [facility] 10*3/uL [facility] LYMPH x10^3 0.89 (L) 1.32 - 3.29 [facility] 10*3/uL [facility] MONO x10^3 0.25 (L) 0.33 - 0.92 [facility] 10*3/uL [facility] EOS x10^3 0.06 0.03 - 0.39 [facility] 10*3/uL [facility] BASO x10^3 <0.03 0.01 - 0.07 [facility] 10*3/uL [facility] Specimen Blood Performing Organization Address City/State/Zipcode Phone Number [facility] CLIA: [id number], [address] [place], [place] [address] FERRITIN SERUM (10/06/2019 12:46 PM CDT) Pathologist Sig nature FERRITIN 330.0 (H) 11.0 - 264.0 ng/mL [facility] Specimen Blood Narrative Performed At [facility] has been reported to cause a negative [facility] bias, interpret results relative to patient's use of biotin. Performing Organization Address City/[facility] Phone Number [facility] CLIA: [id number], [address] [place], [place] [address] TOTAL IRON BINDING CAPACITY (10/06/2019 12:46 PM CDT) Pathologist Sig nature TIBC 248 (L) 250 - 410 ug/dL [facility] % FE SAT 25 20 - 50 % [facility] Specimen Blood Performing Organization Address City/[facility] Phone Number [facility] CLIA: [id number], [address] [place], [place] [address] IRON (10/06/2019 12:46 PM CDT) Pathologist Sig nature IRON 62 50 - 160 ug/dL [facility] Specimen Blood Performing Organization Address [facility] Phone Number [facility] CLIA: [id number], [address] [place], [place] [address] documented in this encounter Visit Diagnoses Diagnosis Anemia, unspecified type documented in this encounter Insurance Payer Benefit Plan / Subscriber ID Effective Dates Phone Addre ss Type Group [facility] xxxxxxxxx 2011-Present Medicaid COMM PLAN - PLUS MANAGED MEDICAID documented as of this encounter Advance Directives Type Date Recorded 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
--- NOTE | 2019-11-02 16:42 | EDPHYS ---
Physician Documentation [facility] Name: Naty Garrido Age: 59 yrs Sex: Female : 1960 Arrival Date: 11/02/2019 Time: 14:01 Bed 6 Private MD: ED Physician Eric Bryant HPI: 11/01 14:53 This 59 yrs old Black Female presents to ER via EMS with complaints of back pain. rn 14:53 The patient presents with pain that is acute. The symptoms are located in the low back. rn Onset: The symptoms/episode began/occurred just prior to arrival. The pain does not radiate. Modifying factors: The patient symptoms are alleviated by nothing, the patient symptoms are aggravated by any movement. Severity of symptoms: At their worst the symptoms were moderate, in the emergency department the symptoms have improved. The patient has not experienced similar symptoms in the past. Reports trying to lift 24" TV off shelf, reports heard back pop, + lower back pain, no fever/urinary or bowel problems, no radiation to legs, no weakness or sensory changes to lower ext. Has never had back problems like this before. . Historical: - Allergies: 14:06 Codeine; hb - PMHx: 14:06 Hypertension; Hypothyroidism; Lupus; hb - PSHx: 14:06 Hysterectomy; hb - Immunization history:: Adult Immunizations up to date. - Social history:: Smoking status: Patient denies any tobacco usage or history of. - Family history:: not pertinent. - Hospitalizations: : No recent hospitalization is reported. ROS: 14:53 Constitutional: Negative for fever, chills, and weight loss, Cardiovascular: Negative rn for chest pain, palpitations, and edema, Respiratory: Negative for shortness of breath, cough, wheezing, and pleuritic chest pain, Abdomen/GI: Negative for abdominal pain, nausea, vomiting, diarrhea, and constipation, Back: + lower back pain MS/Extremity: Negative for injury and deformity, Skin: Negative for injury, rash, and discoloration, Neuro: Negative for headache, weakness, numbness, tingling, and seizure. Exam: 14:53 Constitutional: Overweight female, laying flat Head/Face: Normocephalic, atraumatic. crnp: Regular rate and rhythm. No pulse deficits. Abdomen/GI: soft, non-tender Back: No spinal tenderness. No costovertebral tenderness. Painful twisting and changing of position. Skin: Warm, dry with normal turgor. Normal color with no rashes, no lesions, and no evidence of cellulitis. MS/ Extremity: Pulses equal, no cyanosis. Neurovascular intact. Full, normal range of motion. Equal circumference. Neuro: Awake and alert, GCS 15, oriented to person, place, time, and situation. Cranial nerves II-XII grossly intact. Motor strength 5/5 in all extremities. Sensory grossly intact. Cerebellar exam normal. Vital Signs: 14:03 BP 128 / 58; Pulse 68; Resp 16; Temp 97.8; Pulse Ox 100% ; Weight 154.22 kg; Height 5 hb ft. 4 in. (162.56 cm); Pain 8/10; 15:46 BP 135 / 58; Pulse 81; Resp 16; Temp 97.9(TE); Pulse Ox 100% on R/A; mh5 16:45 BP 136 / 64; Pulse 80; Resp 16; Pulse Ox 99% on R/A; hb 14:03 Body Mass Index 58.36 (154.22 kg, 162.56 cm) hb MDM: 14:03 Patient medically screened. rn 16:39 Differential diagnosis: arthritis, spinal injury, sprain, vertebral fracture. Data rn reviewed: vital signs, nurses notes, radiologic studies, plain films, and as a result, I will discharge patient. Counseling: I had a detailed discussion with the patient and/or guardian regarding: the historical points, exam findings, and any diagnostic results supporting the discharge/admit diagnosis, radiology results, the need for outpatient follow up, to return to the emergency department if symptoms worsen or persist or if there are any questions or concerns that arise at home. Response to treatment: the patient's symptoms have markedly improved after treatment, sleeping comfortably. Special discussion: I discussed with the patient/guardian in detail that at this point there is no indication for admission to the hospital. It is understood, however, that if the symptoms persist or worsen the patient needs to return immediately for re-evaluation. ED course: + acute L2 compression fracture, normal NV exam, will dc home with pain meds and muscle relaxer. Fracture mild and < 50% height, not surgical. Recommend back f/u and back brace.. 16:44 ED course: PMPawarxe score checked, 070/170/000/220. rn 11/01 14:13 Order name: XRAY Lumbar Spine (3 Views); Complete Time: 16:32 rn Administered Medications: 15:31 Drug: Hellier 10 mg-325 mg 1 tabs Route: PO; hb 15:31 Drug: Zofran (Ondansetron) 4 mg Route: PO; hb Disposition: 11/02/19 16:42 Discharged to Home. Impression: Wedge compression fracture of second lumbar vertebra. - Condition is Stable. - Discharge Instructions: Spinal Compression Fracture. - Prescriptions for Tramadol 50 mg Oral Tablet - take 1 tablet by ORAL route every 8 hours as needed; 15 tablet. Cyclobenzaprine 5 mg Oral Tablet - take 1 tablet by ORAL route 3 times per day As needed; 15 tablet. - Medication Reconciliation Form, Thank You Letter, Antibiotic Education, Prescription Opioid Use form. - Follow up: Moreno Garland MD; When: As needed; Reason: Recheck today's complaints, Re-evaluation by your physician. - Problem is new. - Symptoms have improved. Signatures: Dispatcher [employer] EDMS Eric Bryant MD MD rn Baxter, Heather, RN RN Corrections: (The following items were deleted from the chart) 18:35 16:42 11/02/2019 16:42 Discharged to Home. Impression: Wedge compression fracture of hb second lumbar vertebra. Condition is Stable. Forms are Medication Reconciliation Form, Thank You Letter, Antibiotic Education, Prescription Opioid Use. Follow up: Moreno Garland; When: As needed; Reason: Recheck today's complaints, Re-evaluation by your physician. Problem is new. Symptoms have improved. rn
--- NOTE | 2019-11-02 16:42 | ER ---
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 Pain does not radiate. Coronavirus screen: Proceed with normal triage. Ebola Screen: No symptoms or risks identified at this time. Initial Sepsis Screen: Does the patient meet any 2 criteria? No. Patient's initial sepsis screen is negative. Does the patient have a suspected source of infection? No. Patient's initial sepsis screen is negative. Risk Assessment: Do you want to hurt yourself or someone else? Patient reports no desire to harm self or others. Onset of symptoms was November 02, 2019. 14:03 Method Of Arrival: EMS: [facility] 14:03 Acuity: BARON 4 hb Historical: - Allergies: 14:06 Codeine; hb - PMHx: 14:06 Hypertension; Hypothyroidism; Lupus; hb - PSHx: 14:06 Hysterectomy; hb - Immunization history:: Adult Immunizations up to date. - Social history:: Smoking status: Patient denies any tobacco usage or history of. - Family history:: not pertinent. - Hospitalizations: : No recent hospitalization is reported. Screenin:05 Abuse screen: Denies threats or abuse. Denies injuries from another. Nutritional hb screening: No deficits noted. Tuberculosis screening: No symptoms or risk factors identified. Fall Risk None identified. Assessment: 14:05 General: Appears in no apparent distress. uncomfortable, Behavior is calm, cooperative. hb Pain: Pain currently is 8 out of 10 on a pain scale. Neuro: Level of Consciousness is awake, alert, obeys commands, Oriented to person, place, time, situation. Cardiovascular: Capillary refill < 3 seconds Patient's skin is warm and dry. Respiratory: Airway is patent Respiratory effort is even, unlabored, Respiratory pattern is regular, symmetrical. GI: No signs and/or symptoms were reported involving the gastrointestinal system. : No signs and/or symptoms were reported regarding the genitourinary system. EENT: No signs and/or symptoms were reported regarding the EENT system. Derm: Skin is pink, warm \T\ dry. Musculoskeletal: Reports low back pain. 15:00 Reassessment: Patient appears in no apparent distress at this time. Patient and/or hb family updated on plan of care and expected duration. Pain level reassessed. Patient is alert, oriented x 3, equal unlabored respirations, skin warm/dry/pink. Reassessment: Patient appears in no apparent distress at this time. Patient and/or family updated on plan of care and expected duration. Pain level reassessed. Patient is alert, oriented x 3, equal unlabored respirations, skin warm/dry/pink. 16:00 Reassessment: Patient appears in no apparent distress at this time. Patient and/or hb family updated on plan of care and expected duration. Pain level reassessed. Patient is alert, oriented x 3, equal unlabored respirations, skin warm/dry/pink. 17:11 Reassessment: Discharge ordered, pt assisted to wheelchair, in room waiting for hb transportation at this time. 17:54 Reassessment: Pt able to slowly transfer from wheelchair to bedside commode with jl7 standby assist. Vital Signs: 14:03 BP 128 / 58; Pulse 68; Resp 16; Temp 97.8; Pulse Ox 100% ; Weight 154.22 kg; Height 5 hb ft. 4 in. (162.56 cm); Pain 8/10; 15:46 BP 135 / 58; Pulse 81; Resp 16; Temp 97.9(TE); Pulse Ox 100% on R/A; mh5 16:45 BP 136 / 64; Pulse 80; Resp 16; Pulse Ox 99% on R/A; hb 14:03 Body Mass Index 58.36 (154.22 kg, 162.56 cm) ED Course: 14:01 Patient arrived in ED. em1 14:03 Eric Bryant MD is Attending Physician. rn 14:05 Triage completed. hb 14:06 Arm band placed on. hb 14:48 Kassy Iniguez, RN is Primary Nurse. hb 14:50 Patient has correct armband on for positive identification. Bed in low position. Call light in reach. 15:41 Warm blanket given. Pillow given. booties. Pulse ox on. NIBP on. mh5 16:05 XRAY Lumbar Spine (3 Views) In Process Unspecified. EDMS 16:41 Moreno Garland MD is Referral Physician. rn Administered Medications: 15:31 Drug: Jasper 10 mg-325 mg 1 tabs Route: PO; 15:31 Drug: Zofran (Ondansetron) 4 mg Route: PO; Outcome: 16:42 Discharge ordered by . rn 18:35 Patient left the ED. Signatures: Dispatcher [employer] EDTX Eric Bryant MD MD rn Martinez, Eric 1 Kassy Iniguez RN RN Shelby Maldonado 5 Radha Almeida RN RN [id number]
[2019-11-03 10:38] VITALS: TEMP 97.9
[2019-11-03 10:40] VITALS: BP 136/64; O2SAT 99
== END 2019-11-02 18:35 | disposition home or self-care (01) ==
LOC: ER 13:56
DX: S32.020A Wedge compression fracture of second lumbar vertebra, initial encounter for closed fracture (principal); X50.0XXA Overexertion from strenuous movement or load, initial encounter; Y93.89 Activity, other specified; Y92.9 Unspecified place or not applicable; I10 Essential (primary) hypertension; Z88.5 Allergy status to narcotic agent
CPT/HCPCS: 72100; 99284

== ENCOUNTER 2020-11-05 05:55 | Emergency (ER) | payer OTHER ==
--- OUTSIDE RECORDS SUMMARY | 2020-11-05 05:58 | XMS REPORT | Continuity of Care Document ---
:1960 Author Organization [facility] t Address [address] [place] [address] Care Team Providers Name Role Phone Saul GUTIERREZ, Amada Attending Clinician Problems This patient has no known problems. Allergies, Adverse Reactions, Alerts This patient has no known allergies or adverse reactions. Medications This patient has no known medications. Procedures This patient has no known procedures. Encounters Start End Encounter Admission Attending Care Care Encounter Source Date/Time Date/Time Type Type Clinicians Facility Department ID 2020-10-24 2020-10-24 Telephone LACEY Hughes [id number] 00:00:00 00:00:00 [facility] PRIMARY [id number] Amada CARE [id number] PROCIOUS [id number] Results This patient has no known results.
[2020-11-05] MEDS ORDERED: NA CHLORIDE 0.9% 500 ML ONE (08:26)
[2020-11-05 08:55] LABS: Urine Blood Trace-intact (Negative); Urine Glucose Negative (Negative); Urine Protein 1+ (Negative); Urine Specific Gravity >=1.030 (1.005-1.030)
[2020-11-05] MEDS ORDERED: NYSTATIN 500,000 UNIT/5 ML UDC PO ONE (09:00)
[2020-11-05 09:29] LABS: Absolute Lymphocytes (CBC) 1.1 K/uL (0.7-4.9); Basophils % 0.6 % (0-1.3); Hematocrit 30.7 % (36.0-45.0); MPV 9.7 fL (7.6-11.3); RBC Red Blood Cell Count 3.26 M/uL (3.86-4.86)
[2020-11-05 09:36] LABS: Urine Bacteria >50 /HPF (<20); Urine Mucus HEAVY /HPF (NONE SEEN); Urine RBC <5 /HPF (NONE SEEN); Urine Yeast PRESENT (NONE SEEN)
[2020-11-05] MEDS ORDERED: CEFTRIAXONE/SWI 1gm 1 GM/10 ML SYR ONE (09:41)
[2020-11-05 09:59] LABS: ALT/SGPT 14 U/L (12-78); AST/SGOT 16 U/L (15-37); Albumin 2.9 g/dL (3.4-5.0); Alkaline Phosphatase 39 U/L (45-117); BUN Blood Urea Nitrogen 13 mg/dL (7-18); Bicarbonate 27 mmol/L (21-32); Bilirubin Total 0.6 mg/dL (0.2-1.0); Glucose Level 95 mg/dL (74-106); Potassium 3.9 mmol/L (3.5-5.1); Protein, Total 9.4 g/dL (6.4-8.2); Sodium Level 138 mmol/L (136-145)
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
[2020-11-05 11:20] VITALS: TEMP 99.3
[2020-11-05 11:21] VITALS: O2SAT 100
[2020-11-05 11:23] VITALS: BP 113/52
== END 2020-11-05 11:11 | disposition home or self-care (01) ==
LOC: ER 05:55
DX: B37.9 Candidiasis, unspecified (principal); N39.0 Urinary tract infection, site not specified; L93.0 Discoid lupus erythematosus; I10 Essential (primary) hypertension; E03.9 Hypothyroidism, unspecified; Z88.1 Allergy status to other antibiotic agents; Z88.5 Allergy status to narcotic agent
CPT/HCPCS: 96365; 96361; 87088; 85025; 87086; 36415; 83605; 80053; 84145; 99284; J0696; J7040; 81003; 81015